=== PATIENT | male | born 1940 | race Caucasian/White ===

== ENCOUNTER → 2017-05-25 | Outpatient (CLI) | payer MEDICARE, BC ==
[~2017-05-25] MED LIST: ALLO100T70 PO; ALPR-434 PO; ALPR-436 PO; ALPR-448 PO; ALPR-459 PO; ALPR-460 PO; ASPI-715 PO; ASTR1POW PO; CA C1TAB85 PO; CHOL20007 PO; COLC0.6C3 PO; CYCL1DRO6 OP; ESC10 PO; ESCI5TAB3 PO; FOLI-68 PO; HYDR-4309 PO; HYDR-6045 RC; HYDR25SU51 RC; HYDR30SU11 RC; MULT1CAP41 PO; MULT1CAP59 PO; Magic Mouthwash PO; ONDA8TAB94 PO; OXYGEN INH; PHEN15CA69 PO; PNEU0.5D3 IM; SIMV-49 PO; THIA100T58 PO; TRAZ-156 PO; TRAZ150T8 PO; TRIA15CR40 TP; UBID10CA11 PO; VENL37.53 PO; VENL75CA4 PO; VITA-365 PO; WITC1MED12 TP
== END ==
LOC: AMB 22:50
PROVIDERS: ATTEND Nurse Practitioner
DX: R07.9 Chest pain, unspecified (principal); M79.602 Pain in left arm; R53.1 Weakness; R00.0 Tachycardia, unspecified; I10 Essential (primary) hypertension; R94.31 Abnormal electrocardiogram [ECG] [EKG]
CPT/HCPCS: A0425; A0427

== ENCOUNTER 2017-11-14 09:53 | Emergency (ER) | payer MEDICARE, OTHER ==
[2017-11-14 09:57] VITALS: BP 156/113
[2017-11-14] MEDS ORDERED: DOXY-179 PO (10:19)
--- NOTE | 2017-11-14 10:23 | ER Report ---
History and Physical Time Seen By MD: 10:14 Hx. of Stated Complaint: tick bites to left hip, back of each leg. pulled one off that was engorged HPI/ROS CHIEF COMPLAINT: 3 tick bites HISTORY OF PRESENT ILLNESS: Patient is a 77-year-old male here with suspected tick bites of the bilateral knees, left waist. He was reportedly at his cabin over the weekend cleaning and noticed that the ticks on him which he removed on Saturday. He does have pruritus of the location with surrounding erythema. He did get his tetanus updated prior to coming today. REVIEW OF SYSTEMS: Respiratory: No cough, no dyspnea. Cardiovascular: No chest pain, no palpitations. Gastrointestinal: No vomiting, no abdominal pain. Musculoskeletal: No back pain. SKIN: + pruritus of the b/l knees, left waist Allergies: Coded Allergies: NSAIDS (Non-Steroidal Anti-Inflamma (Verified Allergy, Mild, 11/14/17) naproxen (Verified Allergy, Mild, 11/14/17) Home Meds Active Scripts Trazodone Hcl (TRAZODONE HCL) 150 Mg Tablet, 50-150 MG PO QHS, #90 TAB 6 Refills TAKE 50 - 150 MG ABOUT AN HOUR BEFORE YOU PLAN TO GO TO SLEEP. Prov:SLOANE PETERSON MD 07/24/17 [Magic Mouthwash] No Conflict Check, 5 ML PO Q4-6H Y for throat pain, #100 ML 0 Refills Swish & swallow every 4-6 hours as needed for throat pain. Prov:SAM TREVIÑO DNP, PRACTICE SUPPORT SPECIALIST-BC 06/18/17 Reported Medications Eufemia Coronado (JAREN) 1 Each Med..pad, 1 EACH TP PRN Y for HEMORRHOIDS 05/28/17 Hydrocortisone (ANUSOL-HC) 30 Gm Cream..g., 1 TU RC BID Y for HEMORRHOIDS 05/28/17 Hydrocortisone Acetate (ANUSOL-HC) 25 Mg Supp.rect, 25 MG RC QHS Y for HEMORRHOIDS, SUPP.RECT 05/28/17 Thiamine Hcl (VITAMIN B-1) 100 Mg Tablet, 100 MG PO QDAY 05/28/17 Folic Acid (FOLIC ACID) 1 Mg Tablet, 1 MG PO QDAY, TAB 05/28/17 Multivitamin (MULTIVITAMINS) 1 Each Capsule, 1 EACH PO QDAY, CAPSULE 12/27/15 Cyclosporine (RESTASIS) 1 Each Droperette, 1 EACH OP DAILY 09/26/13 Hx Smoking: No Smoking Status: Never Smoker Exposure to Second Hand Smoke?: No Hx Substance Use Disorder: No Hx Alcohol Use: Yes Constitutional Vital Sign - Last 24 Hours 11/14/17 09:57 Temp 98.1 Pulse 72 Resp 14 B/P (MAP) 156/113 Pulse Ox 91 O2 Delivery Room Air Physical Exam General Appearance: The patient is alert, has no immediate need for airway protection and no current signs of toxicity. [ ] Extremities have full range of motion and are non tender, + circular rash of the b/l back knees, left waist Skin: + circular rash with erythema of knees/left waist DIFFERENTIAL DIAGNOSIS: After history and physical exam differential diagnosis was considered for tick borne infection, MRSA, Staph infection, dermatitis Medical Decision Making ED Course/Re-evaluation ED Course Patient is a 77-year-old male here with complaints of 3 separate rashes suspect that the tick bites after visiting his cabin over the Weekend. Due to concern for infection, and possible borne illness, patient was given a prescription for doxycycline twice a day for 7 days. Decision to Disposition Date: November 14, 2017 Decision to Disposition Time: 10:20 Depart Departure Latest Vital Signs Vital Signs Date Time Temp Pulse Resp B/P (MAP) Pulse Ox O2 Delivery O2 Flow Rate FiO2 11/14/17 09:57 98.1 72 14 156/113 91 Room Air Impression: Primary Impression: Tick bite Condition: Condition Unchanged Disposition: HOME OR SELF-CARE Referrals: SLOANE PETERSON MD (PCP) New Scripts Doxycycline Hyclate (DOXYCYCLINE HYCLATE) 100 Mg Tablet 100 MG PO BID for 7 Days, #14 CAP Prov: JOSEPH MISTRY DO 11/14/17 Patient Instructions: Doxycycline (By mouth) Additional Instructions: Please take one tablet twice daily for 7 days of doxycycline. Please return promptly if you develop worsening pain, fevers, spreading rash, joint pain. JOSEPH MISTRY DO November 14, 2017 10:22
== END 2017-11-14 10:36 | disposition home or self-care (01) ==
LOC: ER 10:09
DX: S70.262A Insect bite (nonvenomous), left hip, initial encounter (principal); S80.862A Insect bite (nonvenomous), left lower leg, initial encounter; S80.861A Insect bite (nonvenomous), right lower leg, initial encounter; W57.XXXA Bitten or stung by nonvenomous insect and other nonvenomous arthropods, initial encounter
CPT/HCPCS: 99281

== ENCOUNTER 2018-02-10 10:31 | Emergency (ER) | payer MEDICARE ==
[2018-02-10 10:41] VITALS: BP 133/95
--- NOTE | 2018-02-10 10:52 | ER Report ---
History and Physical Time Seen By MD: 10:52 Hx. of Stated Complaint: PT FELL YESTERDAY IN HOME, HAS ABRASIONS TO LEGS AND ARMS FROM FALL AND HIT HIS HEAD. WANTS TO MAKE SURE HE DOESN'T HAVE A CONCUSSION OR ANYTHIG WRONG HE IS SUPPOSE TO HAVE CATARACT SURGERY TOMORROW HPI/ROS CHIEF COMPLAINT: Fall HISTORY OF PRESENT ILLNESS: This is a 77-year-old male who presents to the emergency department for a fall. Patient states that yesterday morning he tripped, fell down hitting his forehead on a carpeted surface, no loss of consciousness over he has had some mild nausea has a mild headache. Patient also has several abrasions to both knees but is able to ambulate. No chest pain or shortness of breath. No fevers or chills. No loss of bowel or bladder. REVIEW OF SYSTEMS: Constitutional: No fever, no chills. Eyes: No discharge. ENT: No sore throat. Cardiovascular: No chest pain, no palpitations. Respiratory: No cough, no shortness of breath. Gastrointestinal: No abdominal pain, no vomiting. Genitourinary: No hematuria. Musculoskeletal: No back pain. Skin: As above. Neurological: As above. Allergies: Coded Allergies: NSAIDS (Non-Steroidal Anti-Inflamma (Verified Allergy, Mild, 02/10/18) naproxen (Verified Allergy, Mild, 02/10/18) Home Meds Active Scripts Pantoprazole Sodium (PANTOPRAZOLE SODIUM) 40 Mg Tablet.dr, 40 MG PO QDAY, #30 TAB.SR 6 Refills Prov:SLOANE PETERSON MD 01/20/18 Fluticasone Prop 50 Mcg Ns (FLONASE 50 MCG NS) 16 Gm [place].susp, 2 SPRAYS NS QDAY, #1 BOT 3 Refills Prov:SLOANE PETERSON MD 01/20/18 Trazodone Hcl (TRAZODONE HCL) 150 Mg Tablet, 50-150 MG PO QHS, #90 TAB 6 Refills TAKE 50 - 150 MG ABOUT AN HOUR BEFORE YOU PLAN TO GO TO SLEEP. Prov:SLOANE PETERSON MD 07/24/17 Reported Medications Eufemia Coronado (THUANCKS) 1 Each Med..pad, 1 EACH TP PRN PRN for HEMORRHOIDS 05/28/17 Folic Acid (FOLIC ACID) 1 Mg Tablet, 1 MG PO QDAY, TAB 05/28/17 Multivitamin (MULTIVITAMINS) 1 Each Capsule, 1 EACH PO QDAY, CAPSULE 12/27/15 Cyclosporine (RESTASIS) 1 Each Droperette, 1 EACH OP DAILY 09/26/13 Past Medical/Surgical History The patient has a past medical and surgical history of neuropathy, PVCs, PACs, intermittent irregular heartbeat, sleep apnea, nephritis, BPH, arthritis, wrist fractures bilaterally, nosebleeds, cataracts, wears glasses, hard of hearing, hearing aides, anxiety, skin cancer removal, now resection, diverticulitis, tonsillectomy. Reviewed Nurses Notes: Yes Hx Smoking: No Smoking Status: Never Smoker Exposure to Second Hand Smoke?: No Hx Substance Use Disorder: No Hx Alcohol Use: Yes Constitutional Vital Sign - Last 24 Hours 02/10/18 10:41 Temp 98.2 Pulse 103 Resp 18 B/P (MAP) 133/95 Pulse Ox 92 Physical Exam General Appearance: The patient is alert, has no immediate need for airway protection and no signs of toxicity. Eyes: Pupils equal and round no pallor or injection. EOMs intact. No nystagmus. ENT, Mouth: Mucous membranes are moist. Respiratory: There are no retractions, lungs are clear to auscultation. Cardiovascular: Regular rate and rhythm, no murmurs, clicks or rubs. Gastrointestinal: Abdomen is soft and non tender, no masses, bowel sounds normal. Neurological: Alert and oriented 4. Moving all extremities. Following all commands. No focal neuro deficits. Cranial enlarged 2 through 12 intact. Skin: Abrasions to bilateral knees, with small amount of serous drainage. No edema, erythema or cellulitic appearance. Musculoskeletal: Neck is supple non tender. Extremities are nontender, nonswollen and have full range of motion. DIFFERENTIAL DIAGNOSIS: After history and physical exam differential diagnosis was considered for headache including but not limited to subarachnoid hemorrhage, migraine headache, tension headache and infectious causes such as meningitis, pharyngitis and sinusitis. Medical Decision Making EKG/Imaging Imaging TECHNIQUE: Contiguous axial images were obtained from the skull base to the vertex without intravenous contrast. Sagittal and coronal reformatted images are also submitted. One of the following dose optimization techniques was utilized in the performance of this exam: Automated exposure control; adjustment of the mA and/or kV according to the patient's size; or use of an iterative reconstruction technique. Specific details can be referenced in the facility's radiology CT exam operational policy. FINDINGS: Brain volume: Moderate generalized cerebral and cerebellar atrophy with associated concordant prominence of ventricular system. Ventricles: Normal. Acute ischemic changes: None. Hemorrhage: No acute intracranial hemorrhage. Masses/edema: None. Hernández-white: Negative. White matter: Normal. Vessels: Calcified plaque of both carotid siphons. Extra-axial: Prominent extra-axial spaces bilaterally at the vertex is partly due to underlying brain atrophy. There is also subdural hygroma on the right measuring 5 mm in greatest thickness. Calvarium/scalp: No acute fracture. Skull base/visualized face: Negative. Visualized sinuses/orbits: Negative. IMPRESSION: 1. No acute fracture, hemorrhage or intracranial mass lesion. No CT evidence of acute infarct. 2. Chronic right subdural hygroma at the vertex measuring 5 mm. No mass effect or midline shift. 3. Moderate generalized atrophy is advanced for age. Report Dictated By: Mercedez Nelson MD at 02/10/2018 11:47 AM Report E-Signed By: Mercedez Nelson MD at 02/10/2018 11:50 AM WSN:[id number] ED Course/Re-evaluation ED Course The patient was admitted to room. A history physical obtained. Differential Diagnoses were considered. The patient did have a fall from standing, hitting his forehead on a carpeted surface yesterday, does have a mild global headache as well as pain to the forehead. No obvious signs of bruising, crepitus or deformities. A CT of the head was negative for any acute findings however there was an incidental finding of a chronic subdural hygroma, I did review this with the patient's he will follow-up with his primary care provider within the next couple of weeks. I did tell the patient that I do not see any reason why he would not be able to have his cataract surgery tomorrow however this is up to the discretion of the deli worker patient is aware of. Patient had no other questions or concerns at this time and was discharged home. Decision to Disposition Date: Feb 10, 2018 Decision to Disposition Time: 12:32 Depart Departure Latest Vital Signs Vital Signs Date Time Temp Pulse Resp B/P (MAP) Pulse Ox O2 Delivery O2 Flow Rate FiO2 02/10/18 10:41 98.2 103 18 133/95 92 Impression: Primary Impression: Nontraumatic subdural hygroma Additional Impressions: Fall from standing Head injury Abrasion of knee, bilateral Condition: Improved Disposition: HOME OR SELF-CARE Referrals: SLOANE PETERSON MD (PCP) 2 Weeks Patient Instructions: Acute Wound Care (ED), Fall Prevention (ED), Fall Prevention for Older Adults (ED) Additional Instructions: I see no indication why you would not be able to proceed with your cataract surgery tomorrow. Incidental finding of chronic subdural hygroma, I would recommend following up with your primary care provider within the next 2 weeks for reevaluation. Drink plenty of water. Get plenty of rest. Return to the emergency room for any other concerns or worsening symptoms. Problem Qualifiers Additional Impressions: Fall from standing Encounter type: initial encounter Qualified Codes: W19.XXXA - Unspecified fall, initial encounter Head injury Encounter type: initial encounter Qualified Codes: S09.90XA - Unspecified injury of head, initial encounter JONNIE SULLIVAN CERTIFIED NURSE PRACTITIONER-BC Feb 10, 2018 10:52
--- NOTE | 2018-02-10 11:53 | RADIOLOGY IMAGING REPORT ---
FACILITY: [facility] - [place] PATIENT NAME: Thai Cruz : 1940 MR: [id number] V: [id number] EXAM DATE: ORDERING PHYSICIAN: JONNIE SULLIVAN TECHNOLOGIST: Location: [facility] - [place] Patient: Thai Cruz : 1940 Visit/Account:[id number] Date of Sevice: 02/10/2018 EXAMINATION: CT head without IV contrast HISTORY: Fall, head injury. COMPARISON: None. TECHNIQUE: Contiguous axial images were obtained from the skull base to the vertex without intraven ous contrast. Sagittal and coronal reformatted images are also submitted. One of the following dose optimization techniques was utilized in the performance of this exam: Autom ated exposure control; adjustment of the mA and/or kV according to the patient's size; or use of an i terative reconstruction technique. Specific details can be referenced in the facility's radiology C T exam operational policy. FINDINGS: Brain volume: Moderate generalized cerebral and cerebellar atrophy with associated concordant promin ence of ventricular system. Ventricles: Normal. Acute ischemic changes: None. Hemorrhage: No acute intracranial hemorrhage. Masses/edema: None. Hernández-white: Negative. White matter: Normal. Vessels: Calcified plaque of both carotid siphons. Extra-axial: Prominent extra-axial spaces bilaterally at the vertex is partly due to underlying brai n atrophy. There is also subdural hygroma on the right measuring 5 mm in greatest thickness. Calvarium/scalp: No acute fracture. Skull base/visualized face: Negative. Visualized sinuses/orbits: Negative. IMPRESSION: 1. No acute fracture, hemorrhage or intracranial mass lesion. No CT evidence of acute infarct. 2. Chronic right subdural hygroma at the vertex measuring 5 mm. No mass effect or midline shift. 3. Moderate generalized atrophy is advanced for age. Report Dictated By: Mercedez Nelson MD at 02/10/2018 11:47 AM Report E-Signed By: Mercedez Nelson MD at 02/10/2018 11:50 AM WSN:[id number]
== END 2018-02-10 12:50 | disposition home or self-care (01) ==
LOC: ER 10:55
DX: G96.0 Cerebrospinal fluid leak (principal); S09.90XA Unspecified injury of head, initial encounter; S80.212A Abrasion, left knee, initial encounter; S80.211A Abrasion, right knee, initial encounter; W01.198A Fall on same level from slipping, tripping and stumbling with subsequent striking against other object, initial encounter
CPT/HCPCS: 70450; 99284

== ENCOUNTER → 2018-02-10 | Outpatient (CLI) | payer MEDICARE ==
[~2018-02-10] MED LIST changes: +DOXY-179 PO; +FLUT16SP19 NS; +METH4TAB66 PO; +PANT40TA65 PO; +THIA100T20 PO; -THIA100T58 PO; -TRAZ-156 PO; +TRAZ50TA34 PO
--- NOTE | 2018-02-10 18:25 | RADIOLOGY IMAGING REPORT ---
FACILITY: [facility] - [place] PATIENT NAME: Thai Cruz : 1940 MR: [id number] V: [id number] EXAM DATE: ORDERING PHYSICIAN: SLOANE PETERSON TECHNOLOGIST: Location: [facility] - [place] Patient: Thai Cruz : 1940 Visit/Account:[id number] Date of Sevice: 02/10/2018 EXAMINATION: Ultrasound of the neck 02/10/2018 9:31 AM HISTORY: dysphagia COMPARISON: None FINDINGS: Imaging of both sides of the neck was done. No pathologically enlarged cervical lymph node s are demonstrated. Benign-appearing level 3 lymph node on the left measures 4 x 4 by 4 mm. Additiona l benign-appearing 6 x 5 4 L level 3 lymph node has a normal echogenic fatty hilus. On the left, norm al-appearing level 2 lymph nodes are demonstrated measuring 12 x 6 x 3 mm and 15 x 15 x 3 mm. These h ave normal echogenic fatty chris. Full detailed thyroid imaging with measurements is not done. Limited visualization of the subtalar sa livary glands on each side is unremarkable with symmetric echogenicity. IMPRESSION: Unremarkable ultrasound of the neck. No pathologic adenopathy demonstrated. Report Dictated By: Marco Sharif MD at 02/10/2018 6:19 PM Report E-Signed By: Marco Sharif MD at 02/10/2018 6:22 PM WSN:[id number]
== END ==
LOC: US 02:32
PROVIDERS: ATTEND Internal Medicine
DX: R13.10 Dysphagia, unspecified (principal)
CPT/HCPCS: 76536

== ENCOUNTER → 2018-03-17 | Outpatient (CLI) | payer MEDICARE | LOC: LAB 09:51 | PROVIDERS: ATTEND Internal Medicine | DX: J02.9 Acute pharyngitis, unspecified (principal); R13.12 Dysphagia, oropharyngeal phase | CPT/HCPCS: 87070 ==

== ENCOUNTER → 2018-04-04 | Outpatient (CLI) | payer MEDICARE ==
[~2018-04-04] MED LIST changes: +AMOX-559 PO; -HYDR-4309 PO; +HYDR-653 PO
== END ==
LOC: LAB 10:17
PROVIDERS: ATTEND Internal Medicine
DX: J02.9 Acute pharyngitis, unspecified (principal)
CPT/HCPCS: 87070

== ENCOUNTER 2018-07-25 16:28 | Inpatient (IN) | payer MEDICARE ==
[~2018-07-25] VITALS: Ht 175.3 cm; Wt 106.1 kg
[2018-07-25] VITALS (16 sets, daily range): BP systolic 59–108; BP diastolic 31–100
--- NOTE | 2018-07-25 16:31 | ER Report ---
History and Physical Time Seen By MD: 16:31 HPI/ROS CHIEF COMPLAINT: Altered mental status, fall HISTORY OF PRESENT ILLNESS: Patient is a 78-year-old male with a history of alcoholism found at the bottom of steps at the patient's residence, confused, warm to the touch. EMS report. Patient reportedly was recently started on Valium for his alcoholism. Events leading up to the patient being found are unclear at this time however she was notably confused, with a rapid heart rate which was irregular and confirmed to be atrial fibrillation with RVR. Patient's blood pressure was stable, initially patient was noted to be hypothermic however he his became febrile though he was cold and diaphoretic throughout course. Patient was moving all extremities spontaneously with no obvious focal deficits aside from confusion, change in mental status. REVIEW OF SYSTEMS: Unable to obtain due to patient's mental status Allergies: Coded Allergies: NSAIDS (Non-Steroidal Anti-Inflamma (Verified Allergy, Mild, 02/10/18) naproxen (Verified Allergy, Mild, 02/10/18) Home Meds Active Scripts Amoxicillin/Pot Clav 875-125 Mg Tab (AUGMENTIN 875-125 TABLET) 1 Each Tablet, 1 TAB PO Q12H for 10 Days, #20 TAB Prov:NAIN YARBROUGH JR, MD 05/14/18 Neomycin/Polymyxin B Sulf/Hc (Cortisporin [DSC] EAR SOLN) 10 Ml Solution, 5 DROP RIGHT EAR BID for 7 Days, #1 BOT Prov:NAIN YARBROUGH JR, MD 05/07/18 Simvastatin (SIMVASTATIN) 20 Mg Tablet, 20 MG PO HS, #90 TAB 1 Refill Prov:SLOANE PETERSON MD 03/26/18 Amoxicillin/Pot Clav 875-125 Mg Tab (AUGMENTIN 875-125 TABLET) 1 Each Tablet, 1 TAB PO Q12H, #20 TAB Prov:SLOANE PETERSON MD 03/20/18 Pantoprazole Sodium (PANTOPRAZOLE SODIUM) 40 Mg Tablet.dr, 40 MG PO QDAY, #30 TAB.SR 6 Refills Prov:SLOANE PETERSON MD 01/20/18 Fluticasone Prop 50 Mcg Ns (FLONASE 50 MCG NS) 16 Gm [place].susp, 2 SPRAYS NS QDAY, #1 BOT 3 Refills Prov:SLOANE PETERSON MD 01/20/18 Trazodone Hcl (TRAZODONE HCL) 150 Mg Tablet, 50-150 MG PO QHS, #90 TAB 6 Refills TAKE 50 - 150 MG ABOUT AN HOUR BEFORE YOU PLAN TO GO TO SLEEP. Prov:SLOANE PETERSON MD 07/24/17 Reported Medications Eufemia Coronado (TUCKS) 1 Each Med..pad, 1 EACH TP PRN PRN for HEMORRHOIDS 05/28/17 Folic Acid (FOLIC ACID) 1 Mg Tablet, 1 MG PO QDAY, TAB 05/28/17 Multivitamin (MULTIVITAMINS) 1 Each Capsule, 1 EACH PO QDAY, CAPSULE 12/27/15 Cyclosporine (RESTASIS) 1 Each Droperette, 1 EACH OP DAILY 09/26/13 Hx Smoking: No Smoking Status: Never Smoker Exposure to Second Hand Smoke?: No Hx Substance Use Disorder: No Hx Alcohol Use: Yes Constitutional Vital Sign - Last 24 Hours 07/25/18 07/25/18 07/25/18 07/25/18 16:28 16:29 16:29 16:32 Pulse ??? 181 Resp 16 B/P (MAP) 153/137 (142) 80/63 80/63 (69) Pulse Ox 92 O2 Delivery Nasal Cannula 07/25/18 07/25/18 07/25/18 07/25/18 16:43 16:49 16:58 17:08 Pulse 159 200 Resp 58 27 B/P (MAP) 115/79 (91) 84/76 (79) Pulse Ox 85 07/25/18 07/25/18 07/25/18 07/25/18 17:13 17:20 17:28 17:30 Pulse 138 203 Resp 34 18 B/P (MAP) 94/71 (79) 87/51 (63) 83/66 (72) Pulse Ox 97 81 07/25/18 07/25/18 07/25/18 07/25/18 17:32 17:36 17:40 17:45 Pulse 154 Resp 30 B/P (MAP) 105/24 (51) 87/63 (71) 87/70 (76) 07/25/18 07/25/18 07/25/18 07/25/18 17:50 17:58 18:00 18:10 Pulse 125 Resp 23 B/P (MAP) 104/65 (78) 96/64 (75) 86/70 (75) Pulse Ox 95 O2 Flow Rate 3.0 Physical Exam General Appearance: Confused, moving all extremities spontaneously Eyes: Pupils equal and round no pallor or injection. ENT, Mouth: Mucous membranes are dry Respiratory: There are no retractions, lungs are clear to auscultation. Cardiovascular: Rapid irregular heart rate Gastrointestinal: Abdomen is soft and non tender, no masses, bowel sounds normal.+ Hernia present in the left anterior abdominal wall, no rebound or guarding Neurological: Moving all extremities spontaneously, confused, incoherent speech Skin: Warm and dry, no rashes. Musculoskeletal: Neck is supple non tender. Extremities are nontender, nonswollen and have full range of motion. DIFFERENTIAL DIAGNOSIS: After history and physical exam differential diagnosis was considered for altered mental status including but not limited to hypoglycemia, infectious process, electrolyte abnormality, head injury and intoxicants. Sepsis Medical Decision Making Data Points Result Diagram: 07/28/18 0536 07/28/18 0536 Laboratory Hematology Test 07/25/18 16:19 07/25/18 16:39 07/25/18 17:44 Activated Partial Thromboplast Time 31 seconds (23-35) Ammonia 32 UMOL/L (9-33) Total Creatine Kinase 704 U/L (55-170) Urine Color Dior Urine Clarity Cloudy Urine pH 5.0 pH (4.8-9.5) Urine Specific [place] 1.026 Urine Protein 30 mg/dL (NEGATIVE) Urine Glucose (UA) 50 mg/dL (NEGATIVE) Urine Ketones Negative mg/dL (NEGATIVE) Urine Blood Small (NEGATIVE) Urine Nitrite Negative (NEGATIVE) Urine Bilirubin Moderate (NEGATIVE) Urine Urobilinogen 4.0 mg/dL (0.2-1.9) Urine Leukocyte Esterase Negative (NEGATIVE) Urine RBC 1 /HPF (0-2/HPF) Urine WBC 39 /HPF (0-5/HPF) Urine Squamous Epithelial Cells Few /LPF (NONE-FEW) Urine Calcium Oxalate Crystals Few /HPF (NONE) Urine Bacteria Negative /HPF (NONE-FEW) Urine Hyaline Casts Many /LPF (NONE-FEW) Urine Mucus Few /HPF (NONE-FEW) Urine Opiates Screen Negative Urine Barbiturates Screen Negative Ur Tricyclic Antidepressants Screen Negative Urine Phencyclidine Screen Negative Urine Amphetamines Screen Positive Urine Benzodiazepines Screen Positive Urine Cocaine Screen Negative Urine Cannabinoids Screen Negative Influenza Virus Type A (PCR) Negative (NEGATIVE) Influenza Virus Type B (PCR) Negative (NEGATIVE) Chemistry Test 07/25/18 16:19 07/25/18 16:39 07/25/18 17:44 Activated Partial Thromboplast Time 31 seconds (23-35) Ammonia 32 UMOL/L (9-33) Total Creatine Kinase 704 U/L (55-170) Urine Color Dior Urine Clarity Cloudy Urine pH 5.0 pH (4.8-9.5) Urine Specific [place] 1.026 Urine Protein 30 mg/dL (NEGATIVE) Urine Glucose (UA) 50 mg/dL (NEGATIVE) Urine Ketones Negative mg/dL (NEGATIVE) Urine Blood Small (NEGATIVE) Urine Nitrite Negative (NEGATIVE) Urine Bilirubin Moderate (NEGATIVE) Urine Urobilinogen 4.0 mg/dL (0.2-1.9) Urine Leukocyte Esterase Negative (NEGATIVE) Urine RBC 1 /HPF (0-2/HPF) Urine WBC 39 /HPF (0-5/HPF) Urine Squamous Epithelial Cells Few /LPF (NONE-FEW) Urine Calcium Oxalate Crystals Few /HPF (NONE) Urine Bacteria Negative /HPF (NONE-FEW) Urine Hyaline Casts Many /LPF (NONE-FEW) Urine Mucus Few /HPF (NONE-FEW) Urine Opiates Screen Negative Urine Barbiturates Screen Negative Ur Tricyclic Antidepressants Screen Negative Urine Phencyclidine Screen Negative Urine Amphetamines Screen Positive Urine Benzodiazepines Screen Positive Urine Cocaine Screen Negative Urine Cannabinoids Screen Negative Influenza Virus Type A (PCR) Negative (NEGATIVE) Influenza Virus Type B (PCR) Negative (NEGATIVE) Coagulation Test 07/25/18 16:19 Activated Partial Thromboplast Time 31 seconds Toxicology Test 07/25/18 16:39 Urine Opiates Screen Negative Urine Barbiturates Screen Negative Ur Tricyclic Antidepressants Screen Negative Urine Phencyclidine Screen Negative Urine Amphetamines Screen Positive Urine Benzodiazepines Screen Positive Urine Cocaine Screen Negative Urine Cannabinoids Screen Negative Urinalysis Test 07/25/18 16:39 Urine Color Dior Urine Clarity Cloudy Urine pH 5.0 pH (4.8-9.5) Urine Specific [place] 1.026 Urine Protein 30 mg/dL (NEGATIVE) Urine Glucose (UA) 50 mg/dL (NEGATIVE) Urine Ketones Negative mg/dL (NEGATIVE) Urine Blood Small (NEGATIVE) Urine Nitrite Negative (NEGATIVE) Urine Bilirubin Moderate (NEGATIVE) Urine Urobilinogen 4.0 mg/dL (0.2-1.9) Urine Leukocyte Esterase Negative (NEGATIVE) Urine RBC 1 /HPF (0-2/HPF) Urine WBC 39 /HPF (0-5/HPF) Urine Squamous Epithelial Cells Few /LPF (NONE-FEW) Urine Calcium Oxalate Crystals Few /HPF (NONE) Urine Bacteria Negative /HPF (NONE-FEW) Urine Hyaline Casts Many /LPF (NONE-FEW) Urine Mucus Few /HPF (NONE-FEW) Microbiology Microbiology Date/Time Source Procedure Growth Status 07/25/18 17:00 Blood Peripheral Draw Blood Culture - Preliminary NO GROWTH AFTER 3 DAYS, REINCUBATED Resulted 07/25/18 17:00 Blood Peripheral Draw Blood Culture - Preliminary NO GROWTH AFTER 3 DAYS, REINCUBATED Resulted 07/25/18 16:39 Cath Urine Urine Culture - Final No growth Complete EKG/Imaging Imaging Please see official imaging reports ED Course/Re-evaluation ED Course Patient is a 78-year-old male found at the bottom of a flight of steps, altered, diaphoretic, with a irregular rapid heart rate initially hypothermic and found to be febrile shortly after arrival. Events leading up to patient being found are unclear however patient was noted to have a history of alcoholism recently started on Valium. Patient was noted to have a lactate of 11, mild leukocytosis of 12, creatinine is 3 with markedly aberrant liver enzymes and elevated bilirubin level. Patient labs were immediately collected including blood cultures, sepsis protocols were initiated including fluid resuscitation, empiric in a metacarpal administration. CT imaging of the head, C-spine, chest abdomen pelvis without contrast were completed. I discussed the patient with Dr. Quick who accepted the patient to the ICU. Patient was administered diltiazem and started on a diltiazem drip for control of A. fib RVR. Blood pressure remained stable throughout course. Decision to Disposition Date: Jul 25, 2018 Decision to Disposition Time: 17:59 Depart Departure Latest Vital Signs Vital Signs Date Time Temp Pulse Resp B/P (MAP) Pulse Ox O2 Delivery O2 Flow Rate FiO2 07/25/18 18:10 86/70 (75) 07/25/18 18:00 125 23 95 07/25/18 17:58 3.0 07/25/18 16:29 Nasal Cannula Impression: Primary Impression: Alcohol abuse Additional Impressions: Acute renal failure Altered mental status Condition: Condition Unchanged Disposition: Admitted from ER Referrals: SLOANE PETERSON MD (PCP) Problem Qualifiers JOSEPH MISTRY DO Jul 25, 2018 16:31
[2018-07-25] MEDS ORDERED: CEFEPIME HCL 2 GM VIAL IVP ONE (16:35)
[2018-07-25] MEDS ORDERED: VANCOMYCIN 1 GM ADDVIAL 1 GM in NS(*) 0.9% 250 ML ADDVAN BAG 250 ML IVPB ONE (16:35)
[2018-07-25] MEDS ORDERED: NS(*) 0.9% 1000 ML BAG 1,000 ML IV ONE (16:35)
[2018-07-25 16:58] LABS: PLATELET COUNT, AUTOMATED 268 K/uL (150-450)
[2018-07-25 17:03] LABS: INR 1.07
[2018-07-25] MEDS ORDERED: DILTIAZEM 5 MG/ML 5ML IVPUSH IVP ONE (17:10)
[2018-07-25] MEDS ORDERED: VANCOMYCIN(*) 1 GM VIAL 2.5 GM in NS(*) 0.9% 500 ML BAG 500 ML IVPB ONE (17:15)
[2018-07-25] MEDS ORDERED: DILTIAZEM HCL 125 MG/25 ML SDV 125 MG in NS(*) 0.9% 100 ML BAG 100 ML IV ONE (17:35)
[2018-07-25] MEDS ORDERED: EMS NS 0.9%(*) 1000 ML BAG 1,000 ML IV ONE ×2 (17:40→18:00)
--- NOTE | 2018-07-25 18:23 | RADIOLOGY IMAGING REPORT ---
FACILITY: [facility] PATIENT NAME: Thai Cruz : 1940 MR: [id number] V: [id number] EXAM DATE: ORDERING PHYSICIAN: JOSEPH MISTRY TECHNOLOGIST: Location: [facility] Patient: Thai Cruz : 1940 Visit/Account:[id number] Date of Sevice: 07/25/2018 EXAMINATION: CT head without IV contrast HISTORY: AMS. TECHNIQUE: Axial CT images of the head were obtained from the vertex to the skull base without IV c ontrast, with coronal and sagittal 2D reconstructed images. One of the following dose optimization techniques was utilized in the performance of this exam: Autom ated exposure control; adjustment of the mA and/or kV according to the patient's size; or use of an i terative reconstruction technique. Specific details can be referenced in the facility's radiology C T exam operational policy. COMPARISON: 02/10/2018. FINDINGS: There is stable moderate generalized parenchymal atrophy, with mild patchy low attenuation in the tommy p white matter compatible with chronic small vessel ischemic change. Stable small focus of chronic e ncephalomalacia in the anterior right temporal lobe. Intracranial vascular calcifications. No CT evidence of intracranial hemorrhage, mass lesion, or acute infarct. No midline shift or extra-a xial fluid collections. Hernández-white differentiation is maintained. The calvarium is intact. The partially visualized paranasal sinuses and mastoid air cells are unopaci fied. IMPRESSION: 1. No CT evidence of acute intracranial pathology. 2. Moderate parenchymal atrophy appear stable with chronic small vessel ischemic change. Report Dictated By: Jas Wallace MD at 07/25/2018 6:14 PM Report E-Signed By: Jas Wallace MD at 07/25/2018 6:19 PM WSN:[email or web address]
--- NOTE | 2018-07-25 18:25 | RADIOLOGY IMAGING REPORT ---
FACILITY: [facility] - [place] PATIENT NAME: Thai Cruz : 1940 MR: [id number] V: [id number] EXAM DATE: ORDERING PHYSICIAN: JOSEPH MISTRY TECHNOLOGIST: [place] [facility] [place] : 1940 Visit/Account:[id number] Date of Sevice: 07/25/2018 EXAMINATION: CT cervical spine without IV contrast HISTORY: AMS. TECHNIQUE: Thin axial CT images of the cervical spine were obtained without IV contrast, with sagit elzbieta and coronal 2D reconstructed images. One of the following dose optimization techniques was utilized in the performance of this exam: Autom ated exposure control; adjustment of the mA and/or kV according to the patient's size; or use of an i terative reconstruction technique. Specific details can be referenced in the facility's radiology C T exam operational policy. COMPARISON: None. FINDINGS: The cervical spine is negative for acute fracture or subluxation. Normal alignment. Vertebral body height is maintained. Chronic multilevel degenerative changes in cervical spine. There is moderate disc space narrowing at the C4-C5 through C6-C7 interspaces with endplate osteophyte formation. Mild multilevel facet arthr opathy bilaterally. The dens is intact. The C1 ring is intact, with normal alignment at the craniocervical junction. IMPRESSION: 1. No acute osseous findings along the cervical spine. Normal alignment. 2. Chronic multilevel degenerative changes in the cervical spine. Report Dictated By: Jas Wallace MD at 07/25/2018 6:19 PM Report E-Signed By: Jas Wallace MD at 07/25/2018 6:21 PM WSN:[email or web address]
[2018-07-25] MEDS ORDERED: NS(*) 0.9% 1000 ML BAG 1,000 ML IV PRN (18:35)
--- NOTE | 2018-07-25 18:35 | RADIOLOGY IMAGING REPORT ---
FACILITY: [facility] - [place] PATIENT NAME: Thai Cruz : 1940 MR: [id number] V: [id number] EXAM DATE: ORDERING PHYSICIAN: JOSEPH MISTRY TECHNOLOGIST: Location: [facility] - [place] Patient: Thai Cruz : 1940 Visit/Account:[id number] Date of Sevice: 07/25/2018 EXAMINATION: CT chest, abdomen, and pelvis without IV contrast HISTORY: Trauma. AMS. TECHNIQUE: Axial CT images of the chest, abdomen, and pelvis were obtained without IV contrast, wit h coronal and sagittal 2D reconstructed images. One of the following dose optimization techniques was utilized in the performance of this exam: Autom ated exposure control; adjustment of the mA and/or kV according to the patient's size; or use of an i terative reconstruction technique. Specific details can be referenced in the facility's radiology C T exam operational policy. COMPARISON: CT abdomen/pelvis without contrast 09/30/2015. FINDINGS: Evaluation of the solid and viscus parenchymal organs is limited without the benefit of IV contrast. Image quality is also partially degraded by respiratory motion artifact. Chest: Lungs and pleura: There is some mild patchy airspace disease in the left lower lobe, partially obscu red by motion artifact, suspicious for an infectious or inflammatory pneumonitis. Additional mild at electasis or infiltrate in the right lung base. The upper lungs are clear. The central airways are patent. No pleural effusion or pneumothorax. Mediastinum and chris: Negative. Heart, aorta, and great vessels: Normal caliber thoracic aorta. Normal heart size. No pericardial effusion. Chest lymph node assessment: Negative. Bones: No acute osseous findings in the chest. There are old left-sided rib fractures. No definite acute rib fracture. Chronic multilevel degenerative changes along the thoracic spine. Chest wall: Negative. Lower neck: Negative. Abdomen/pelvis: Liver: Marked hepatic steatosis with generalized hepatomegaly. Gallbladder and bile ducts: Cholelithiasis. Spleen: Negative. Pancreas: Negative. Adrenal glands: Negative. Kidneys: Small right renal cysts appear grossly stable, measuring up to 2.1 cm.. Kidneys are otherw ise unremarkable. No retroperitoneal fluid or hemorrhage. Bowel and peritoneum: The small bowel and colon are normal in caliber. Extensive colonic diverticul osis. No localized bowel wall thickening. Normal appendix. No free fluid or free intraperitoneal a ir. Pelvic structures: The urinary bladder is decompressed with a Rainey catheter in place. Lymph node assessment: Negative. Vessels: Mild vascular calcifications. Normal caliber abdominal aorta. Musculoskeletal: No evidence of acute fracture in the lumbar spine or bony pelvis. Chronic multile kristy degenerative changes along the lumbar spine. Body wall: Small fat-containing umbilical hernia. Small fat-containing left inguinal hernia. IMPRESSION: 1. No acute traumatic findings in the chest, abdomen, or pelvis. 2. There is some mild patchy airspace disease in the lower left lung which may be compatible with an infectious or inflammatory pneumonitis. Minimal right basilar atelectasis or infiltrate. 3. No acute intra-abdominal findings. 4. Hepatic steatosis with generalized hepatomegaly. 5. Cholelithiasis. 6. Colonic diverticulosis. Report Dictated By: Jas Wallace MD at 07/25/2018 6:21 PM Report E-Signed By: Jas Wallace MD at 07/25/2018 6:31 PM WSN:[email or web address]
--- NOTE | 2018-07-25 18:36 | RADIOLOGY IMAGING REPORT ---
FACILITY: [facility] - [place] PATIENT NAME: Thai Cruz : 1940 MR: [id number] V: [id number] EXAM DATE: ORDERING PHYSICIAN: JOSEPH MISTRY TECHNOLOGIST: Location: [facility] - [place] Patient: Thai Cruz : 1940 Visit/Account:[id number] Date of Sevice: 07/25/2018 EXAMINATION: Portable AP Chest HISTORY: AMS, sepsis COMPARISON: 05/26/2017. FINDINGS: There is mild patchy airspace disease in the lower left lung, suspicious for pneumonitis. Right lung is grossly clear. No pleural effusion or pneumothorax. Normal cardiomediastinal silhouette. No acute osseous findings. Old left rib fractures. IMPRESSION: Left lower lobe infiltrate, suspicious for pneumonia. Report Dictated By: Jas Wallace MD at 07/25/2018 6:31 PM Report E-Signed By: Jas Wallace MD at 07/25/2018 6:32 PM WSN:[email or web address]
[2018-07-25] MEDS ORDERED: DIAZEPAM 10 MG TAB PO PRN (19:25)
[2018-07-25] MEDS: NS(*) 0.9% 1000 ML BAG 1,000 ML IV PRN ×2 (19:30→22:39)
--- NOTE | 2018-07-25 19:48 | History & Physical ---
History of Present Illness Chief Complaint Found down History of Present Illness This patient was brought to the emergency room after being found lying at the bottom of a set of stairs. The events leading up to this are not known and it is also unknown how long he was down for. He is confused, but not complaining of any pain. History Problems: (1) Alcohol abuse Status: Chronic (2) Major depressive disorder, recurrent, unspecified (3) Alcohol withdrawal (4) Chronic kidney disease, stage II (mild) Onset Date: 12/21/2014 Status: Chronic (5) Gouty arthropathy Status: Chronic Home Meds Active Scripts Amoxicillin/Pot Clav 875-125 Mg Tab (AUGMENTIN 875-125 TABLET) 1 Each Tablet, 1 TAB PO Q12H for 10 Days, #20 TAB Prov:NAIN YARBROUGH JR, MD 05/14/18 Neomycin/Polymyxin B Sulf/Hc (Cortisporin [DSC] EAR SOLN) 10 Ml Solution, 5 DROP RIGHT EAR BID for 7 Days, #1 BOT Prov:NAIN YARBROUGH JR, MD 05/07/18 Simvastatin (SIMVASTATIN) 20 Mg Tablet, 20 MG PO HS, #90 TAB 1 Refill Prov:SLOANE PETERSON MD 03/26/18 Amoxicillin/Pot Clav 875-125 Mg Tab (AUGMENTIN 875-125 TABLET) 1 Each Tablet, 1 TAB PO Q12H, #20 TAB Prov:SLOANE PETERSON MD 03/20/18 Pantoprazole Sodium (PANTOPRAZOLE SODIUM) 40 Mg Tablet.dr, 40 MG PO QDAY, #30 TAB.SR 6 Refills Prov:SLOANE PETERSON MD 01/20/18 Fluticasone Prop 50 Mcg Ns (FLONASE 50 MCG NS) 16 Gm [place].susp, 2 SPRAYS NS QDAY, #1 BOT 3 Refills Prov:SLOANE PETERSON MD 01/20/18 Trazodone Hcl (TRAZODONE HCL) 150 Mg Tablet, 50-150 MG PO QHS, #90 TAB 6 Refills TAKE 50 - 150 MG ABOUT AN HOUR BEFORE YOU PLAN TO GO TO SLEEP. Prov:SLOANE PETERSON MD 07/24/17 Reported Medications Eufemia Coronado (JAREN) 1 Each Med..pad, 1 EACH TP PRN PRN for HEMORRHOIDS 12/12/17 Folic Acid (FOLIC ACID) 1 Mg Tablet, 1 MG PO QDAY, TAB 05/28/17 Multivitamin (MULTIVITAMINS) 1 Each Capsule, 1 EACH PO QDAY, CAPSULE 12/27/15 Cyclosporine (RESTASIS) 1 Each [place]pe[place], 1 EACH OP DAILY 09/26/13 Allergies: Coded Allergies: NSAIDS (Non-Steroidal Anti-Inflamma (Verified Allergy, Mild, 02/10/18) naproxen (Verified Allergy, Mild, 02/10/18) Patient History: FH: [place] (myocardial infarction) FATHER, , Age:84 MOTHER, , Age:87 FH: alcohol abuse FATHER, , Age:84 FH: hypertension MOTHER, , Age:87 Hx Smoking: No Smoking Status: Never Smoker Exposure to Second Hand Smoke?: No Caffeine Intake: Soda Hx Alcohol Use: Yes Hx Substance Use Disorder: No Social Drug Use: Never Review of Systems All Systems Reviewed/Normal: Yes, Except as Noted Neurological: Confusion Exam Vital Signs Vital Signs Date Time Temp Pulse Resp B/P (MAP) Pulse Ox O2 Delivery O2 Flow Rate FiO2 07/25/18 19:01 97.8 135 12 95/76 (82) 92 Nasal Cannula 3.0 Neuro: No Gross deficits Eyes: PERRLA Cardiovascular: Other (Irregular rhythm.) Respiratory: Clear to Auscultation GI: Other (Distended with no tenderness.) Extremities: No Edema Integumentary: Jaundice; No Cyanosis Medical Decision Making Data Points Result Diagram: 07/25/18 1619 07/25/18 1619 Assessment and Plan Problems: (1) Altered mental status Assessment & Plan: He was found down at home. The events leading up to this and how long he was down are unknown. A CT scan of the head was unremarkable. He does not have any obvious injury and is not complaining of pain. He remains confused to place and time on arrival to the ICU. A toxicology screen and blood alcohol level are pending. (2) Sepsis Assessment & Plan: He does not have any localizing symptoms, but was noted to be febrile in the field. He also has an elevated lactate level. He has been started on fluid resuscitation and a repeat lactate level is pending. (3) Bacterial pneumonia Assessment & Plan: His chest x-ray and CT scan indicate a left lower lobe infiltrate. He also was found to have an elevated WBC. We have started him on empiric treatment with cefepime and doxycycline. A repeat x-ray is ordered for the morning. (4) Atrial fibrillation with RVR Assessment & Plan: He was in atrial fibrillation with a rapid rate on arrival. He has also been hypotensive. He was started on diltiazem in the emergency department, but this has now been stopped secondary to hypotension. A troponin and EKG are pending. (5) Acute renal failure Assessment & Plan: He did have an elevated creatinine at admission. He is on IV fluids as above. A repeat chemistry is ordered for the morning. (6) Alcoholism Assessment & Plan: He does have a history of withdrawal. He has been placed on CIWA protocol and thiamine. (7) Cirrhosis, alcoholic Assessment & Plan: His liver function has worsened significantly since last ch ecked (07/2017). A hepatitis panel is pending. Copies to: SLOANE PETERSON MD ; Venous Thromboembolism Antithrombotics Is Pt On Any Antithrombotics?: No Exam Sepsis Risk: No Definite Risk HECTOR RODRIGUEZ DO Jul 25, 2018 19:48
--- NOTE | 2018-07-25 20:37 | EKG ---
FACILITY: [facility] PATIENT NAME: HECTOR VERAS : [id number] MR: [id number] V: [id number] EXAM DATE: ORDERING PHYSICIAN: HECTOR RODRIGUEZ TECHNOLOGIST: MARIN Test Reason : AFIB Blood Pressure : / mmHG Vent. Rate : 135 BPM Atrial Rate : 081 BPM P-R Int : 000 ms QRS Dur : 082 ms QT Int : 288 ms P-R-T Axes : 000 -64 075 degrees QTc Int : 432 ms Atrial fibrillation with rapid ventricular response Left axis deviation Septal infarct (cited on or before 25-MAY-2017) Abnormal ECG When compared with ECG of 25-JUL-2018 16:39, ST no longer depressed in Lateral leads Confirmed by HECTOR RODRIGUEZ ([id number]) on 07/25/2018 10:55:35 PM Referred By: Confirmed By:HECTOR RODRIGUEZ
--- NOTE | 2018-07-25 20:38 | EKG ---
FACILITY: [facility] PATIENT NAME: HECTOR VERAS : [id number] MR: [id number] V: [id number] EXAM DATE: ORDERING PHYSICIAN: JOSEPH MISTRY TECHNOLOGIST: Test Reason : a fib Blood Pressure : / mmHG Vent. Rate : 176 BPM Atrial Rate : 147 BPM P-R Int : 000 ms QRS Dur : 088 ms QT Int : 278 ms P-R-T Axes : 000 -64 104 degrees QTc Int : 475 ms Atrial fibrillation with premature ventricular or aberrantly conducted complexes Left axis deviation Septal infarct (cited on or before 25-MAY-2017) Abnormal ECG When compared with ECG of 25-MAY-2017 17:20, Atrial fibrillation has replaced Sinus rhythm T wave amplitude has decreased in Inferior leads Confirmed by EHCTOR RODRIGUEZ ([id number]) on 07/25/2018 10:55:27 PM Referred By: Confirmed By:HECTOR RODRIGUEZ
[2018-07-25] MEDS: DOXYCYCLINE HYCL 100 MG VIAL 100 MG in NS(*) 0.9% 250 ML BAG 250 ML IV SCH (21:45)
[2018-07-26] VITALS (95 sets, daily range): BP systolic 61–127; BP diastolic 29–104
[2018-07-26] MEDS: DIAZEPAM 10 MG TAB PO PRN ×3 (00:53→05:44)
[2018-07-26] MEDS: NS(*) 0.9% 1000 ML BAG 1,000 ML IV PRN ×3 (00:58→18:20)
[2018-07-26] MEDS: CEFEPIME HCL 2 GM VIAL 2 GM in NS(*) 0.9% 100 ML BAG 100 ML IVPB SCH ×2 (04:49→17:10)
[2018-07-26] MEDS ORDERED: DILTIAZEM HCL 125 MG/25 ML SDV 125 MG in NS(*) 0.9% 100 ML BAG 100 ML IV ONE (05:00)
[2018-07-26 05:22] LABS: PLATELET COUNT, AUTOMATED 134 K/uL (150-450)
--- NOTE | 2018-07-26 05:36 | RADIOLOGY IMAGING REPORT ---
[facility] PATIENT NAME: Hector Cruz : 1940 MR: [id number] V: [id number] EXAM DATE: ORDERING PHYSICIAN: HECTOR RODRIGUEZ TECHNOLOGIST: Location: [facility] [place] Patient: Hector Cruz : 1940 Visit/Account:[id number] Date of Sevice: 07/26/2018 AP CHEST 07/26/2018 6:00 AM. INDICATION: Pneumonia COMPARISON: Yesterday. FINDINGS: Given differences in positioned in technique, bilateral patchy opacities are likely not significantly changed and remain greatest at the left base. No definite pleural effusion or pneumothorax. Heart size is unchanged. IMPRESSION: Likely not significantly changed. Report Dictated By: Noel Mercedes MD at 07/26/2018 5:30 AM Report E-Signed By: Noel Mercedes MD at 07/26/2018 5:32 AM WSN:[id number]
[2018-07-26] MEDS: LORazepam 2 MG/ML VIAL IVP PRN ×5 (07:50→14:34)
--- NOTE | 2018-07-26 08:05 | Hospitalist Progress Note ---
Subjective Progress Notes Subjective Agitated. Appears to be hallucinating. Physical Exam Vital Signs Date Time Temp Pulse Resp B/P (MAP) Pulse Ox O2 Delivery O2 Flow Rate FiO2 07/26/18 07:30 155 21 105/66 (79) 89 Nasal Cannula 3.0 07/26/18 06:15 97.8 Intake and Output 07/26/18 07:00 Intake Total 5620.6 ml Output Total 460 ml Balance 5160.6 ml Intake Oral 300 ml IV Total 5320.6 ml Output Urine Total 460 ml # Bowel Movements 1 General Appearance: Alert, Awake, Other (Tremulous/He is oriented only to person) Neuro: Other (moves all four extremities) Cardiovascular: Other (Tachycardic irregular) Respiratory: Other (Diffuse rhonchi with rales at both bases) GI: Soft and Non-Tender, Other (BS present) Extremities: Warm, Perfused Integumentary: Other (some callous formation over right toes/significant hammer toes/mild erythema over several toes on right, but no open areas or drainage) Psych: Other (oriented only to person) Result Diagram: 07/26/1845707/26/18457 Assessment and Plan Problems: (1) Altered mental status Status: Acute Assessment & Plan: He was found down at home. The events leading up to this and how long he was down are unknown. CT scan of the head was unremarkable. He does not have any obvious injury and is not in apparent pain. He is only oriented to person and remains confused to place and time. Toxicology screen is positive for amphetamines and benzodiazepines and blood alcohol was negative. It does appear he has pneumonia as well. I suspect he probably has substance withdrawal (alcohol/benzodiazepines) and acute infection. Will continue CIWA with Ativan coverage and antibiotics/IV fluids/supportive care. (2) Sepsis Status: Acute Assessment & Plan: Probable pneumonia as the etiology. He was noted to be febrile in the field. He also had an elevated lactate level. He has been started on IV antibiotics and IV fluid resuscitation. Repeat lactate levels are improved (2.7 this AM). Cultures pending. (3) Bacterial pneumonia Assessment & Plan: His chest x-ray and CT scan indicate a left lower lobe infiltrate. He also was found to have an elevated WBC. We have started him on empiric treatment with cefepime and doxycycline. Repeat chest x-ray shows slightly increased LLL infiltrate and possible slight RLL infiltrate as well. (4) Atrial fibrillation with RVR Assessment & Plan: He was in atrial fibrillation with a rapid rate on arrival. He has also been hypotensive. He was started on IV diltiazem in the emergency department, but this has now been stopped secondary to hypotension. BP and HR have improved with IV fluids. A troponin was slightly elevated above normal, but not into positive range. Will monitor closely. (5) Acute renal failure Status: Acute Assessment & Plan: Most likely secondary to dehydration and acute infection. He did have an elevated creatinine at admission (3.2). He is on IV fluids as above. Repeat chemistry shows improvement in creatinine to 2.1 this AM. (6) Alcoholism Status: Chronic Assessment & Plan: He does have a history of withdrawal. He has been placed on CIWA protocol and IV thiamine. Watch closely and give IV Ativan as needed. (7) Cirrhosis, alcoholic Assessment & Plan: His liver function has worsened significantly since last checked (07/2017). CT scan shows hepatomegaly and marked steatosis. Hepatitis panel is pending. Exam Sepsis Risk: No Definite Risk ALAN JHA MD Jul 26, 2018 08:05
[2018-07-26] MEDS: THIAMINE HCL 200 MG/2 ML INJ IVP SCH (08:48)
[2018-07-26] MEDS ORDERED: FOLIC ACID 1 MG TAB PO SCH (09:00)
[2018-07-26] MEDS ORDERED: ENOXAPARIN 30 MG/0.3 ML SYR SC SCH (09:00)
[2018-07-26] MEDS: DOXYCYCLINE HYCL 100 MG VIAL 100 MG in NS(*) 0.9% 250 ML BAG 250 ML IV SCH ×2 (09:19→20:18)
[2018-07-26] MEDS ORDERED: KCL (*) 20 MEQ/100 ML PREMIX 100 ML IV ONE (11:40)
--- NOTE | 2018-07-26 11:53 | Medical Nutrition Therapy ---
Nutrition Anthropometrics Height (Inches): 69.00 Height (Calculated Centimeters: 175.534857 Weight (Pounds): 215 Weight (Calculated Kilograms): 97.522 BMI: 31.7 Adams Nutrition Score: Adequate Adams Nutrition Risk Score: 13 Dietary Referral Nutrition Risk Factors: Nutrition Risk Comment: Physical Findings Physical Appearance: Obese BMI 30-39 Skin Appearance Skin Appearance: Edema Edema Location Modifier: Edema Location: Type of Edema: Degree of Edema: Gastrointestinal Symptoms GI Symtoms: Tube Present: Bowel Sounds: Recent Bowel Pattern: Stool Characteristics: Nutritional Diagnosis Nutritional Risk Acuity 1: Acute/ES Renal Nutritional Risk Acuity 2: Sepsis Past Medical History: alcohol abuse, diverticulitis, cirrhosis Nutritional Acuity: 1-High Nutrition Problem/Etiology/Sym: Increase protein needs r/t dx sepsis, AEB alb 2.3. Energy Requirement: 2200 (M- St J) Diet Type: Diet as Tolerated KWASI/REG Nutrition Intervention: Cont diet as ordered, Encourage intake Additional Diet Restrictions: OFFER NUTR SUPPLEMENT IF NO HIGH PROTEIN FOOD ORDERED OR EATEN Nutrition Monitoring & Eval Nutrition Goals: Eat 75-100% Meal RD Patient Assessment Time: [address] Assessment Type: RD Assessment Patient Nutrition Acuity: 1-High Follow Up Date: Jul 29, 2018 Nutritional Comment: 2 Pt admitted with AMS s/p fall. Pt has dx ARF and sepsis with hx of aldohol abuse and cirrhosis. Nutrition significnt labs: alb 2.3, BUN 33, creatinine 2.1, Mg 1.7, K+ 3.4, AST 197, ALT 108. Pt is recieving K+ supplment and thiamin. Pt on regular diet but only ate "bites" of first meal. Goal is to provide adequat protein r/t to increase needs of sepsis but not excessive r/t dx ARF. Will offer nutr supplement if pt doesn't consume or order a high protein food with each meal. Will cont to monitor and encourage intake. RIZWANA PERALES Jul 26, 2018 11:53
[2018-07-26] MEDS ORDERED: DIGOXIN 0.5 MG/2 ML AMP IVP ONE ×3 (12:30→18:00)
[2018-07-26] MEDS: NYSTATIN 100,000 U/GM PWD 15GM TP PRN ×2 (14:33→20:26)
[2018-07-26] MEDS ORDERED: ALBUMIN HUMAN 5% 250 ML BTL 250 ML IVPB ONE (15:00)
[2018-07-26] MEDS: ENOXAPARIN 100 MG/ML SYR SC SCH (20:18)
[2018-07-27] VITALS (80 sets, daily range): BP systolic 79–123; BP diastolic 45–100
[2018-07-27] MEDS: CEFEPIME HCL 2 GM VIAL 2 GM in NS(*) 0.9% 100 ML BAG 100 ML IVPB SCH ×2 (04:19→17:23)
[2018-07-27] MEDS: NS(*) 0.9% 1000 ML BAG 1,000 ML IV PRN (04:24)
[2018-07-27 05:20] LABS: INR 1.14
[2018-07-27 05:22] LABS: PLATELET COUNT, AUTOMATED 138 K/uL (150-450)
--- NOTE | 2018-07-27 07:08 | RADIOLOGY IMAGING REPORT ---
FACILITY: [facility] - [place] PATIENT NAME: Thai Cruz : 1940 MR: [id number] V: [id number] EXAM DATE: ORDERING PHYSICIAN: ALAN JHA TECHNOLOGIST: Location: [facility] Patient: Thai Cruz : 1940 Visit/Account:[id number] Date of Sevice: 07/27/2018 CHEST SINGLE AP 07/27/2018 06:44 hours. HISTORY: Cough. Pneumonia. COMPARISON: 07/26/2018 and studies dating to 05/25/2017 TECHNIQUE: Portable AP view of the chest. FINDINGS: Tubes/lines/hardware: There are external chest leads. Pulmonary/pleura: No change in the patchy left greater than right bibasilar opacities. There is no pn eumothorax or pleural effusion. Cardiomediastinal: The cardiac silhouette is at the upper limits of normal, stable. The mediastinal s ilhouette is within normal limits. Bones/soft tissues: No acute osseous abnormality. The visible abdomen is normal. IMPRESSION: 1. No significant interval change. Report Dictated By: Christine Melvin at 07/27/2018 7:01 AM Report E-Signed By: Christine Melvin at 07/27/2018 7:03 AM WSN:[id number]
[2018-07-27] MEDS ORDERED: MAGNESIUM SUL* 2 GM/50 ML IVPB 50 ML IVPB ONE (07:40)
[2018-07-27] MEDS: THIAMINE HCL 200 MG/2 ML INJ IVP SCH (08:46)
[2018-07-27] MEDS: ENOXAPARIN 100 MG/ML SYR SC SCH ×2 (08:47→20:33)
[2018-07-27] MEDS ORDERED: DIGOXIN 0.5 MG/2 ML AMP IVP ONE (09:00)
[2018-07-27] MEDS: DOXYCYCLINE HYCL 100 MG VIAL 100 MG in NS(*) 0.9% 250 ML BAG 250 ML IV SCH ×2 (09:22→20:33)
--- NOTE | 2018-07-27 13:17 | Hospitalist Progress Note ---
Subjective Progress Notes Subjective The patient denies new complaints. Wearing BiPAP. Physical Exam Vital Signs Date Time Temp Pulse Resp B/P (MAP) Pulse Ox O2 Delivery O2 Flow Rate FiO2 07/27/18 11:30 98 13 101/70 (80) 93 07/27/18 11:20 Bi-PAP 30.0 07/27/18 10:00 98.0 07/26/18 15:15 4.0 Intake and Output 07/27/18 07:00 Intake Total 3687 ml Output Total 860 ml Balance 2827 ml Intake Oral 0 ml IV Total 3687 ml Output Urine Total 860 ml # Bowel Movements 1 General Appearance: Alert, Awake, No Acute Distress, Afebrile ENT: Other (BiPAP mask in place. Hard of hearing.) Cardiovascular: Other (Irregularly irregular.) Respiratory: Clear to Auscultation (Decreased BS anteriorly without wheezing, rales or rhonchi.) GI: Soft and Non-Tender Extremities: Warm, Perfused Integumentary: Skin Intact without Lesion / Mass Psych: Appropriate Mood & Affect Result Diagram: 07/27/18 05007/27/18 050 Assessment and Plan Problems: (1) Altered mental status Status: Acute Assessment & Plan: He was found down at home. The events leading up to this and how long he was down are unknown. CT scan of the head was unremarkable. He does not have any obvious injury and is not in apparent pain. He is less confused today. Toxicology screen is positive for amphetamines and benzodiazepines and blood alcohol was negative. It does appear he has pneumonia as well. I suspect he probably has substance withdrawal (alcohol/benzodiazepines) and acute infection. Will continue CIWA with Ativan coverage and antibiotics/IV fluids/supportive care. (2) Sepsis Status: Acute Assessment & Plan: Probable pneumonia as the etiology. He was noted to be febrile in the field. He also had an elevated lactate level. He has been treated IV antibiotics and IV fluids. Cultures are negative to date. (3) Bacterial pneumonia Assessment & Plan: His chest x-ray and CT scan indicate a left lower lobe infiltrate. He also was found to have an elevated WBC. We have started him on empiric treatment with cefepime and doxycycline. Repeat chest x-ray shows slightly increased LLL infiltrate and possible slight RLL infiltrate as well. (4) Atrial fibrillation with RVR Assessment & Plan: He was in atrial fibrillation with a rapid rate on arrival. He was also hypotensive. He was started on IV diltiazem in the emergency department, but this was stopped secondary to hypotension. BP and HR have improved with IV fluids. A troponin was slightly elevated above normal, but not into positive range. Due to low BP, he was started on Digoxin for rate control. He was loaded with 3 doses of 0.25mg. His rate improved. Will give a dose of 0.25mg today and order a level with am lab. His magnesium was noted to be low today. Will replace with 2 grams IV and repeat a magnesium with am lab. (5) Acute renal failure Status: Acute Assessment & Plan: Most likely secondary to dehydration and acute infection. He did have an elevated creatinine at admission (3.2). He is on IV fluids as abo ve. Repeat chemistry shows improvement in creatinine to 1.8 this AM. (6) Alcoholism Status: Chronic Assessment & Plan: He does have a history of withdrawal. He has been placed on CIWA protocol and IV thiamine. Watch closely and give IV Ativan as needed. (7) Cirrhosis, alcoholic Assessment & Plan: His liver function has worsened significantly since last checked (07/2017). CT scan shows hepatomegaly and marked steatosis. Hepatitis panel is pending. Time Spent on Plan of Care: < 30 min Exam Sepsis Risk: No Definite Risk TANYA JHA MD Jul 27, 2018 13:17
[2018-07-27] MEDS: NYSTATIN 100,000 U/GM PWD 15GM TP PRN (20:34)
[2018-07-28] VITALS (24 sets, daily range): BP systolic 90–133; BP diastolic 55–98
[2018-07-28] MEDS: NS(*) 0.9% 1000 ML BAG 1,000 ML IV PRN (02:18)
[2018-07-28] MEDS: CEFEPIME HCL 2 GM VIAL 2 GM in NS(*) 0.9% 100 ML BAG 100 ML IVPB SCH ×2 (04:34→17:27)
[2018-07-28 05:49] LABS: PLATELET COUNT, AUTOMATED 136 K/uL (150-450)
[2018-07-28] MEDS: THIAMINE HCL 200 MG/2 ML INJ IVP SCH (08:56)
[2018-07-28] MEDS: ENOXAPARIN 100 MG/ML SYR SC SCH ×2 (08:58→20:32)
--- NOTE | 2018-07-28 08:59 | Hospitalist Progress Note ---
Subjective Progress Notes Subjective This patient was admitted for sepsis and pneumonia. He had no acute events overnight. Patient Complains of: Cardiovascular: No: Chest Pain Respiratory: No: Shortness of Breath Physical Exam Vital Signs Date Time Temp Pulse Resp B/P (MAP) Pulse Ox O2 Delivery O2 Flow Rate FiO2 07/28/18 08:30 107 24 103/98 (100) 77 Nasal Cannula 2.0 07/28/18 08:00 98.6 07/27/18 17:15 Intake and Output 07/28/18 07:00 Intake Total 4024 ml Output Total 1425 ml Balance 2599 ml Intake Oral 1950 ml IV Total 2074 ml Output Urine Total 1425 ml Cardiovascular: Regular Rate and Rhythm Respiratory: Clear to Auscultation Result Diagram: 07/28/1836 07/28/18535 Assessment and Plan Problems: (1) Altered mental status Status: Acute Assessment & Plan: He was found down at home. The events leading up to this and how long he was down are unknown. CT scan of the head was unremarkable. His mentation has cleared with treatment of his sepsis. (2) Sepsis Status: Acute Assessment & Plan: He was noted to be febrile in the field. He also had an elevated lactate level. He has improved with IV fluids and treatment of his infection. (3) Bacterial pneumonia Assessment & Plan: His chest x-ray and CT scan indicate a left lower lobe infiltrate. He is on empiric treatment with cefepime and doxycycline. (4) Atrial fibrillation with RVR Assessment & Plan: He was in atrial fibrillation with a rapid rate on arrival. He was also hypotensive. He was started on IV diltiazem in the emergency department, but this was stopped secondary to hypotension. A troponin was slightly elevated above normal, but not into positive range. He received a digoxin load over the weekend, and we will be starting scheduled dosing today. (5) Acute renal failure Status: Acute Assessment & Plan: He did have an elevated creatinine at admission (3.2). His levels have been improving with IV fluids. (6) Alcoholism Status: Chronic Assessment & Plan: He does have a history of withdrawal. He was on CIWA protocol and IV thiamine. (7) Cirrhosis, alcoholic Assessment & Plan: His liver function has worsened significantly since last checked (07/2017). CT scan shows hepatomegaly and marked steatosis. His liver enzymes have improved. Hepatitis panel is pending. Exam Sepsis Risk: No Definite Risk HECTOR RODRIGUEZ DO Jul 28, 2018 08:59
[2018-07-28] MEDS ORDERED: INFLUENZA VIRUS VAC 0.5ML SYR IM ONLY ONE (09:00)
[2018-07-28] MEDS: NYSTATIN 100,000 U/GM PWD 15GM TP PRN (09:04)
[2018-07-28] MEDS: DOXYCYCLINE HYCL 100 MG VIAL 100 MG in NS(*) 0.9% 250 ML BAG 250 ML IV SCH (09:05)
[2018-07-28] MEDS: DIGOXIN 0.125 MG TAB PO SCH (09:07)
--- NOTE | 2018-07-28 10:06 | NUR ---
Physical Therapy Impression PT/OT co-treat for pt safety, following co-eval, with time split for billing purposes. Pt was Mod assist for bed mobility with head of bed elevated and Mod assist x 2 for safety with walker negotiation to access BR for toileting. Thereafter, pt completed [id number] transfer toilet to W/C and then W/C to bed. Pt is very hard of hearing, and communication may play a role in pt's decreased understanding of cues given during therapy session to encourage safety with mobility. Physical Therapy Goals 1. Pt to be Min assist for bed mobility and sup <> sit transfers 2. Pt to be Min/CGA for sit <> stand transfers 3. Pt to be CGA/SBA for ambulation with least restrictive device x 100' 4. Pt to be CGA/SBA for up/down platform step to simulate entry to home. Patient's Goals
--- NOTE | 2018-07-28 10:06 | NUR ---
Physical Therapy Impression PT/OT eval completed, followed by co-treat for pt safety. Difficult to obtain accurate history and environmental information. Pt does appear confused at this time and is not present initially. Pt does state that his is unable to drive. Pt requires 2 Person Mod assist for bed mobility with head of bed raised. Pt demos very poor understanding of FWW use and unsafe method to negotiate walker. Ambulation is with a wide base of support and excessive assistance required by both PT and OT and nursing to manage IV lines, O2 tubing and walker use. Recommend stand-pivot transfers with 2 person for nursing staff initially to ensure safety. Pt will likely require further rehab prior to transition home, recommendations pending progress. Physical Therapy Goals 1. Pt to be Min assist for bed mobility and sup <> sit transfers 2. Pt to be Min/CGA for sit <> stand transfers 3. Pt to be CGA/SBA for ambulation with least restrictive device x 100' 4. Pt to be CGA/SBA for up/down platform step to simulate entry to home. Patient's Goals
--- NOTE | 2018-07-28 13:14 | NUR ---
Occupational Therapy Impression Mod A supine to sit. Mod Ax2 ambulation x30ft with RW. Max Ax2 toileting. Mod A sit<>supine. Pt with decreased safety awareness and problem solving. Requiring significant assist and v/c's to manage RW. Pt very hard of hearing, may contributed to apparent confusion and decreased ability to follow v/c's. Rec further rehab prior to discharge home. Occupational Therapy Goals 1) Pt will be Min A toilet task. 2) Pt will be Min A grooming/hygiene. 3) Pt will be Min A UB/LB dressing. 4) Pt will be educated on appropriate AE needs. Patient's Goal
[2018-07-28] MEDS: CEFDINIR 300 MG CAP PO SCH (20:32)
[2018-07-28] MEDS: DOXYCYCLINE HYCL 100 MG TAB PO SCH (20:32)
[2018-07-29 04:19] VITALS: BP 120/77
[2018-07-29 06:19] LABS: PLATELET COUNT, AUTOMATED 174 K/uL (150-450)
[2018-07-29 06:48] VITALS: BP 113/71
[2018-07-29] MEDS: CEFDINIR 300 MG CAP PO SCH ×2 (08:59→21:10)
[2018-07-29] MEDS: ENOXAPARIN 100 MG/ML SYR SC SCH ×2 (08:59→21:10)
[2018-07-29] MEDS: DOXYCYCLINE HYCL 100 MG TAB PO SCH ×2 (08:59→21:09)
[2018-07-29] MEDS: DIGOXIN 0.125 MG TAB PO SCH (08:59)
[2018-07-29] MEDS: THIAMINE HCL 100 MG TAB PO SCH (08:59)
[2018-07-29] MEDS: NYSTATIN 100,000 U/GM PWD 15GM TP PRN (08:59)
--- NOTE | 2018-07-29 11:31 | Antimicrobial Stewardship ---
Antimicrobial Stewardship Empiricly appropriate: Yes Support empiric regimen: Yes Comment Cefepime + doxycycline --> doxycycline + cefdinir Approriate Cultures done: Yes (Blood Cx x2 - NGTD, Urine Cx (-)) Renal/Hepatic dosing: Yes (Scr 3.2-->1.8, CrCl ~ 34mL/min (IBW)) IV to PO Opportunity: Yes (switched to oral) Determine cumulative duration: Day 5 Determine standard duration: 7-10 days total Verified plan for regimen: Yes Comment 78 yo M with a history of alcoholism who presented with acute mental status changes s/p a fall. Tmax afebrile WBC 12.8-->wnl Lactate 11.4 Blood and Urine Cx (-) Scr 3.2-->1.8, CrCl ~34ml/min Tbili 10.3 Influenza (-) Chest/Abd/pelvis CT-- LLL infiltrate Started on Cefepime/Doxycycline on 05/24, switched to po doxycycline/cefdinir, continue treatment for CAP for 7-10 days with cefdinir/doxycycline. Mikaela Peterson, PharmD, BCOP MIKAELA PETERSON Jul 29, 2018 11:31
[2018-07-29 11:54] VITALS: BP 123/74
--- NOTE | 2018-07-29 12:13 | NUR ---
Physical Therapy Impression PT/OT co treat for patient safety. Pt completed bed mobility with Ar and HOB completely elevated. Transfers completed with modA x2. Pt is very [place] and therefore it is difficult to discern whether decreased safety awareness is d/t cognition or difficulty hearing. Pt impulsive with ambulation, with major LOB at beginning of gait, requiring mod-maxX2 to prevent fall. Ambulation 2x50' with RW and close chair follow for safety. Pt with moderate path deviation, SpO2 88% on room air with mobility.Rec skilled nursing subacute rehab. Physical Therapy Goals 1. Pt to be Min assist for bed mobility and sup <> sit transfers 2. Pt to be Min/CGA for sit <> stand transfers 3. Pt to be CGA/SBA for ambulation with least restrictive device x 100' 4. Pt to be CGA/SBA for up/down platform step to simulate entry to home. Patient's Goals
--- NOTE | 2018-07-29 14:25 | Hospitalist Progress Note ---
Subjective Progress Notes Subjective 78M admitted for sepsis. DARION overnight, mental status improved this am. Family would like to discuss possible EtOH rehab, patient open. Patient Complains of: Respiratory: No: Cough Gastrointestinal: No Nausea, No Vomiting Physical Exam Vital Signs Date Time Temp Pulse Resp B/P (MAP) Pulse Ox O2 Delivery O2 Flow Rate FiO2 07/29/18 08:59 83 07/29/18 07:53 97 Nasal Cannula 3.0 07/29/18 06:48 97.8 20 113/71 (85) 07/29/18 05:22 30.0 Intake and Output 07/29/18 07:00 Intake Total 810 ml Output Total 1000 ml Balance -190 ml Intake Oral 810 ml Output Urine Total 1000 ml # Bowel Movements 1 General Appearance: Alert, Awake, No Acute Distress, Afebrile Neuro: No Gross deficits ENT: Normal Cardiovascular: Other (irregularly irregular) Respiratory: No Respiratory Distress (3L) GI: Soft and Non-Tender Extremities: Soft and Non Tender, Warm, Pulses, Perfused Result Diagram: 07/29/1855307/29/18553 Assessment and Plan Problems: (1) Altered mental status Status: Acute Assessment & Plan: He was found down at home. The events leading up to this and how long he was down are unknown. CT scan of the head was unremarkable. His mentation has cleared with treatment of his sepsis. Per family is now near or at baseline. (2) Sepsis Status: Acute Assessment & Plan: Resolved. He was noted to be febrile in the field. He also had an elevated lactate level. He has improved with IV fluids and treatment of his infection. (3) Bacterial pneumonia Assessment & Plan: His chest x-ray and CT scan indicate a left lower lobe infiltrate. He is on empiric treatment with cefdinir and doxycycline. (4) Atrial fibrillation with RVR Assessment & Plan: He was in atrial fibrillation with a rapid rate on arrival. He was also hypotensive. He was started on IV diltiazem in the emergency department, but this was stopped secondary to hypotension. A troponin was slightly elevated above normal, but not into positive range. He received a digoxin load over the weekend, and we will be starting scheduled dosing today. (5) Acute renal failure Status: Acute Assessment & Plan: He did have an elevated creatinine at admission (3.2). His levels have been improving with IV fluids. (6) Alcoholism Status: Chronic Assessment & Plan: He does have a history of withdrawal. He was on CIWA protocol and IV thiamine. Family and patient request resources from [facility] for alcohol abuse. (7) Cirrhosis, alcoholic Assessment & Plan: His liver function has worsened significantly since last checked (07/2017). CT scan shows hepatomegaly and marked steatosis. His liver enzymes have improved. Hepatitis panel is pending. Will get RUQ US as bilirubin has again increased, dominated by direct bilirubin. If imaging again negative this is likely due to alcoholic hepatitis. Exam Sepsis Risk: No Definite Risk ORTA KASSIDY MCGINNIS DO Jul 29, 2018 14:25
--- NOTE | 2018-07-29 14:41 | NUR ---
Occupational Therapy Impression Co-treat with PT. Pt. required Mod A x2 and fiona chair follow in order to ambulate. Pt. very impulsive and had one LOB, therapist corrected. Recommend intermediate school teacher subacute rehab upon d/c. Continue with POC. Occupational Therapy Goals 1) Pt will be Min A toilet task. 2) Pt will be Min A grooming/hygiene. 3) Pt will be Min A UB/LB dressing. 4) Pt will be educated on appropriate AE needs. Patient's Goal
[2018-07-29 15:30] VITALS: BP 140/108
--- NOTE | 2018-07-29 16:08 | Medical Nutrition Therapy ---
Nutrition Anthropometrics Height (Inches): 69.00 Height (Calculated Centimeters: 175.605634 Weight (Pounds): 229 Weight (Calculated Kilograms): 103.873 BMI: 31.7 Adams Nutrition Score: Adequate Adams Nutrition Risk Score: 17 Dietary Referral Nutrition Risk Factors: Nutrition Risk Comment: Physical Findings Physical Appearance: Obese BMI 30-39 Skin Appearance Skin Appearance: Edema Edema Location Modifier: Both Edema Location: Upper Extremity Type of Edema: Degree of Edema: Gastrointestinal Symptoms GI Symtoms: Tube Present: Bowel Sounds: Recent Bowel Pattern: Stool Characteristics: Nutritional Diagnosis Nutritional Risk Acuity 1: Acute/ES Renal Nutritional Risk Acuity 2: Swallowing Problem, Sepsis Past Medical History: alcohol abuse, diverticulitis, cirrhosis Nutritional Acuity: 1-High Nutrition Problem/Etiology/Sym: Increase protein needs r/t dx sepsis, AEB alb 2.3. Energy Requirement: 2200 (M- St J) Adjusted Energy Requirement Re: 182 (.8GM/LG) Protein Requirement: 82 (.8GM/LG) Fluid Requirement: 2200 (1KCAL/ML) Diet Type: Dysphagia Stage 2 Nutrition Intervention: Cont diet as ordered, Encourage intake Additional Diet Restrictions: OFFER NUTR SUPPLEMENT IF NO HIGH PROTEIN FOOD ORDERED OR EATEN Nutrition Monitoring & Eval Nutrition Goals: Eat 75-100% Meal RD Patient Assessment Time: [address] Assessment Type: RD Re-Assessment Patient Nutrition Acuity: 1-High Follow Up Date: Aug 01, 2018 Nutritional Comment: 07/26 Pt admitted with AMS s/p fall. Pt has dx ARF and sepsis with hx of aldohol abuse and cirrhosis. Nutrition significnt labs: alb 2.3, BUN 33, creatinine 2.1, Mg 1.7, K+ 3.4, AST 197, ALT 108. Pt is recieving K+ supplment and thiamin. Pt on regular diet but only ate "bites" of first meal. Goal is to provide adequat protein r/t to increase needs of sepsis but not excessive r/t dx ARF. Will offer nutr supplement if pt doesn't consume or order a high protein food with each meal. Will cont to monitor and encourage intake. BK 07/29 Pt was changed to dyspagia 2 diet. Per , pt having trouble swallowing r/t flem and mucus from pnuemonia. However states has been having swallowing issues since May. Pt may benefit from SPL rob. Intake has improved with change in diet. Overall intake average 36% however today pt eating 75-100%. pt cont elevated BUN at 26 and elevated creatinine at 1.8 but has improved from admitting. RIZWANA PERALES Jul 29, 2018 16:08
[2018-07-29 19:43] VITALS: BP 126/81
[2018-07-30 09:38] VITALS: BP 121/75
[2018-07-30] MEDS: CEFDINIR 300 MG CAP PO SCH ×2 (09:41→20:44)
[2018-07-30] MEDS: DOXYCYCLINE HYCL 100 MG TAB PO SCH ×2 (09:41→20:44)
[2018-07-30] MEDS: ENOXAPARIN 100 MG/ML SYR SC SCH ×2 (09:41→20:45)
[2018-07-30] MEDS: THIAMINE HCL 100 MG TAB PO SCH (09:41)
[2018-07-30] MEDS: DIGOXIN 0.125 MG TAB PO SCH (09:44)
--- NOTE | 2018-07-30 11:46 | RADIOLOGY IMAGING REPORT ---
FACILITY: [facility] PATIENT NAME: Hector Cruz : 1940 MR: [id number] V: [id number] EXAM DATE: ORDERING PHYSICIAN: HECTOR RODRIGUEZ TECHNOLOGIST: Location: [facility] Patient: Hector Cruz : 1940 Visit/Account:[id number] Date of Sevice: 07/30/2018 Limited abdominal ultrasound HISTORY: . Hyperbilirubinemia COMPARISON: None FINDINGS: Gallbladder: Somewhat hydropic appearing gallbladder with a width measuring maximally at approximatel y 4 cm. No wall edema. No para cholecystic fluid. There is a shadowing 7 mm stone in the neck of t he gallbladder. Liver: Increased homogenous echogenicity within the liver compatible fatty infiltrative change. No f ocal liver lesions. Common duct: Mildly prominent common bile duct measuring 9 mm. Pancreas: Pancreas is obscured Right kidney: 12 x 7 x 5.5 cm in size. No hydronephrosis. No cortical mass lesions. Upper abdominal aorta and IVC: Patent. Ascites: None visualized. IMPRESSION: Single gallstone near the neck of the gallbladder. Somewhat hydropic appearing gallbladder with no e vidence of cholecystitis. Common bile duct 9 mm. Similar to the previous CT scan measurement 2016. Single gallstone present within the gallbladder at that time as well. Report Dictated By: Keo Warren MD at 07/30/2018 11:24 AM Report E-Signed By: Keo Warren MD at 07/30/2018 11:42 AM WSN:[id number]
--- NOTE | 2018-07-30 12:07 | NUR ---
Occupational Therapy Impression Pt. required total A to perform toileting activities, Min A to perform supine to sit EOB transfer and CGA to perform stand step pivot transfer with use of FWW with CGA. Recommend d/c to [facility] subacute rehab. Continue with POC. Occupational Therapy Goals 1) Pt will be Min A toilet task. 2) Pt will be Min A grooming/hygiene. 3) Pt will be Min A UB/LB dressing. 4) Pt will be educated on appropriate AE needs. Patient's Goal
--- NOTE | 2018-07-30 12:08 | NUR ---
OCCUPATIONAL THERAPY Dressing Assistance: Total A for LB dressing, Min A to change gown. Dressing Aid Required: Bathing Assistance: Bathing Equipment: Home Assessment: Not Completed Feeding Assistance: Set- up Feeding Specialized Equipment: N/A Toilet Use: Total Assistance 1 person assist (catheter still in place) Verbalizes Needs: Yes Understands Precautions: No Cooperative: Yes Family Teaching: No Occupational Therapy Comment: Recommend d/c to nursing home subacute rehab.
--- NOTE | 2018-07-30 15:28 | Hospitalist Progress Note ---
Subjective Progress Notes Subjective He denies nausea or pain. No concerns from staff except that he continues to be profoundly weak. Physical Exam Vital Signs Date Time Temp Pulse Resp B/P (MAP) Pulse Ox O2 Delivery O2 Flow Rate FiO2 07/30/18 09:51 91 Nasal Cannula 0.5 07/30/18 09:44 72 07/30/18 09:38 98.7 20 121/75 (90) 07/30/18 01:06 30.0 Intake and Output 07/30/18 07:00 Intake Total 965 ml Output Total 950 ml Balance 15 ml Intake Oral 965 ml Output Urine Total 950 ml General Appearance: Alert, Awake, No Acute Distress Cardiovascular: Regular Rate and Rhythm Respiratory: Clear to Auscultation GI: Soft and Non-Tender Extremities: Edema (trace pitting edema in ankles bilaterally) Integumentary: Jaundice Result Diagram: 07/29/18 0554 07/30/18 0524 Assessment and Plan Problems: (1) Weakness Status: Acute Assessment & Plan: Secondary to sepsis and baseline deconditioning. Therapy is recommending a [facility] subacute rehab facility to help him regain strength. KAVITHA is working with the family to find a good location. (2) Bacterial pneumonia Assessment & Plan: His chest x-ray and CT scan indicate a left lower lobe infiltrate. He is on empiric treatment with cefdinir and doxycycline. He is afebrile, on less O2, and now has a normal WBC. (3) Atrial fibrillation with RVR Assessment & Plan: He was in atrial fibrillation with a rapid rate on arrival. He was also hypotensive. He was started on IV diltiazem in the emergency department, but this was stopped secondary to hypotension. A troponin was slightly elevated above normal, but not into positive range. He received a digoxin load, and now on scheduled dosing. Will check a level tomorrow. (4) Acute renal failure Status: Acute Assessment & Plan: His baseline creatinine was about 1.3. He did have an elevated creatinine at admission (3.2). His levels had been improving with IV fluids, but have plateaued at about 1.8. CT of the abdomen on admission didn't show any hydronephrosis. He has had a Rainey catheter in place during the entire admission. Will follow. (5) Sepsis Status: Acute Assessment & Plan: Resolved. He was noted to be febrile in the field. He also had an elevated lactate level. He has improved with IV fluids and treatment of his infection. (6) Altered mental status Status: Acute Assessment & Plan: He was found down at home. The events leading up to this and how long he was down are unknown. CT scan of the head was unremarkable. His mentation has cleared with treatment of his sepsis. Per family is now near or at baseline. (7) Cirrhosis, alcoholic Assessment & Plan: His liver function has worsened significantly since last checked (07/2017). CT scan shows hepatomegaly and marked steatosis. His liver enzymes have improved. Hepatitis panel is pending. As bilirubin has again increased, dominated by direct bilirubin likely related to cirrhosis. RUQ US shows no evidence of new ductal dilation (common bile duct at 9mm as it was in 2016) or obstruction. INR and ammonia have been normal during this admission. (8) Alcoholism Status: Chronic Assessment & Plan: He does have a history of withdrawal. He was on CIWA protocol and IV thiamine. Family and patient request resources from [facility] for alcohol abuse. Exam Sepsis Risk: No Definite Risk DESHAWN GUIDRY MD Jul 30, 2018 15:28
[2018-07-30 16:15] VITALS: BP 123/78
[2018-07-30 19:36] VITALS: BP 123/87
[2018-07-31 06:22] LABS: PLATELET COUNT, AUTOMATED 173 K/uL (150-450)
[2018-07-31 07:53] VITALS: BP 126/76
[2018-07-31] MEDS: CEFDINIR 300 MG CAP PO SCH ×2 (09:40→22:23)
[2018-07-31] MEDS: THIAMINE HCL 100 MG TAB PO SCH (09:40)
[2018-07-31] MEDS: ENOXAPARIN 100 MG/ML SYR SC SCH ×2 (09:40→22:24)
[2018-07-31] MEDS: DOXYCYCLINE HYCL 100 MG TAB PO SCH ×2 (09:40→22:23)
[2018-07-31] MEDS: DIGOXIN 0.125 MG TAB PO SCH (09:46)
--- NOTE | 2018-07-31 14:22 | Hospitalist Progress Note ---
Subjective Progress Notes Subjective 78M admitted for sepsis. DARION overnight, awaiting placement. Patient Complains of: Neurological: No: Confusion Cardiovascular: No: Chest Pain Gastrointestinal: No Nausea, No Vomiting Physical Exam Vital Signs Date Time Temp Pulse Resp B/P (MAP) Pulse Ox O2 Delivery O2 Flow Rate FiO2 07/31/18 09:46 86 07/31/18 09:40 Nasal Cannula 0.5 07/31/18 07:53 97.8 20 126/76 (93) 91 07/30/18 01:06 30.0 Intake and Output 07/31/18 07:00 Intake Total 420 ml Output Total 1225 ml Balance -805 ml Intake Oral 420 ml Output Urine Total 1225 ml # Bowel Movements 1 General Appearance: Alert, Awake, No Acute Distress, Afebrile Neuro: No Gross deficits ENT: Normal (jaundiced) Cardiovascular: Normal Rhythm & Peripheral Pulses Respiratory: No Respiratory Distress GI: Soft and Non-Tender Extremities: Soft and Non Tender, Warm, Pulses, Perfused Integumentary: Jaundice Result Diagram: 07/31/18 0534 07/31/18533 Assessment and Plan Problems: (1) Weakness Status: Acute Assessment & Plan: Secondary to sepsis and baseline deconditioning. Therapy is recommending a [facility] subacute rehab facility to help him regain strength. [facility] is working with the family to find a good location. (2) Bacterial pneumonia Assessment & Plan: His chest x-ray and CT scan indicate a left lower lobe infiltrate. He is on empiric treatment with cefdinir and doxycycline. He is afebrile, on less O2, and now has a normal WBC. (3) Atrial fibrillation with RVR Assessment & Plan: He was in atrial fibrillation with a rapid rate on arrival. He was also hypotensive. He was started on IV diltiazem in the emergency department, but this was stopped secondary to hypotension. A troponin was slightly elevated above normal, but not into positive range. He received a digoxin load, and now on scheduled dosing. Will check a level tomorrow. (4) Acute renal failure Status: Acute Assessment & Plan: His baseline creatinine was about 1.3. He did have an elevated creatinine at admission (3.2). His levels had been improving with IV fluids, but have plateaued at about 1.8. CT of the abdomen on admission didn't show any hydronephrosis. He has had a Rainey catheter in place during the entire admission. Will follow. (5) Sepsis Status: Acute Assessment & Plan: Resolved. He was noted to be febrile in the field. He also had an elevated lactate level. He has improved with IV fluids and treatment of his infection. (6) Altered mental status Status: Acute Assessment & Plan: He was found down at home. The events leading up to this and how long he was down are unknown. CT scan of the head was unremarkable. His mentation has cleared with treatment of his sepsis. Per family is now near or at baseline. (7) Cirrhosis, alcoholic Assessment & Plan: His liver function has worsened significantly since last checked (07/2017). CT scan shows hepatomegaly and marked steatosis. His liver enzymes have improved. Hepatitis panel is pending. As bilirubin has again inc reased, dominated by direct bilirubin likely related to cirrhosis. RUQ US shows no evidence of new ductal dilation (common bile duct at 9mm as it was in 2016) or obstruction. INR and ammonia have been normal during this admission. (8) Alcoholism Status: Chronic Assessment & Plan: He does have a history of withdrawal. He was on CIWA protocol and IV thiamine. Family and patient request resources from [facility] for alcohol abuse. Exam Sepsis Risk: No Definite Risk ORTA KASSIDY MCGININS DO Jul 31, 2018 14:22
--- NOTE | 2018-07-31 14:31 | NUR ---
Occupational Therapy Impression Pt. ambulated to bathroom and then into hallway with use of FWW with CGA and fiona-chair follow. Pt. did vear to the right while ambulating requiring verbal cues to correct. Pt. on room air with SPO2 at 87% during ambulation activity. Pt. required Max A to perform toileting activities. Recommend d/c to alf subacute rehab. Continue with POC. Occupational Therapy Goals 1) Pt will be Min A toilet task. 2) Pt will be Min A grooming/hygiene. 3) Pt will be Min A UB/LB dressing. 4) Pt will be educated on appropriate AE needs. Patient's Goal
[2018-07-31 16:23] VITALS: BP 126/71
[2018-07-31 19:52] VITALS: BP 126/75
[2018-08-01 04:08] VITALS: BP 113/74
[2018-08-01 07:17] VITALS: BP 130/78
[2018-08-01] MEDS: DIGOXIN 0.125 MG TAB PO SCH (08:38)
[2018-08-01] MEDS: DOXYCYCLINE HYCL 100 MG TAB PO SCH ×2 (08:38→21:11)
[2018-08-01] MEDS: THIAMINE HCL 100 MG TAB PO SCH (08:38)
[2018-08-01] MEDS: LACTULOSE 10 GM/15 ML UDCUP PO SCH (08:38)
[2018-08-01] MEDS: CEFDINIR 300 MG CAP PO SCH ×2 (08:39→21:11)
[2018-08-01] MEDS: NS(*) 0.9% 1000 ML BAG 1,000 ML IV PRN (08:41)
[2018-08-01] MEDS ORDERED: ENOXAPARIN 100 MG/ML SYR SC SCH (09:00)
--- NOTE | 2018-08-01 11:44 | Medical Nutrition Therapy ---
Nutrition Anthropometrics Height (Inches): 69.00 Height (Calculated Centimeters: [phone] Weight (Pounds): 228 Weight (Calculated Kilograms): 103.618 BMI: 31.7 Aadms Nutrition Score: Adequate Adams Nutrition Risk Score: 16 Dietary Referral Nutrition Risk Factors: Nutrition Risk Comment: Physical Findings Physical Appearance: Obese BMI 30-39 Skin Appearance Skin Appearance: Edema Edema Location Modifier: Both Edema Location: Foot Type of Edema: Degree of Edema: 1+ Gastrointestinal Symptoms GI Symtoms: Tube Present: Bowel Sounds: Recent Bowel Pattern: Stool Characteristics: Nutritional Diagnosis Nutritional Risk Acuity 1: Acute/ES Renal Nutritional Risk Acuity 2: Swallowing Problem, Sepsis Past Medical History: alcohol abuse, diverticulitis, cirrhosis Nutritional Acuity: 1-High Nutrition Problem/Etiology/Sym: Increase protein needs r/t dx sepsis, AEB alb 2.3. Energy Requirement: 2200 (M- St J) Adjusted Energy Requirement Re: 182 (.8GM/LG) Protein Requirement: 82 (.8GM/LG) Fluid Requirement: 2200 (1KCAL/ML) Diet Type: Dysphagia Stage 2 Nutrition Intervention: Cont diet as ordered, Encourage intake Additional Diet Restrictions: OFFER NUTR SUPPLEMENT IF NO HIGH PROTEIN FOOD ORDERED OR EATEN Nutrition Monitoring & Eval Nutrition Goals: Eat 50-100% Meal, Drink > 2 liters/day Nutrition Follow-Up: Fair Intake RD Patient Assessment Time: [address] Assessment Type: RD Re-Assessment Patient Nutrition Acuity: 1-High Follow Up Date: Aug 04, 2018 Nutritional Comment: 07/26 Pt admitted with AMS s/p fall. Pt has dx ARF and sepsis with hx of aldohol abuse and cirrhosis. Nutrition significnt labs: alb 2.3, BUN 33, creatinine 2.1, Mg 1.7, K+ 3.4, AST 197, ALT 108. Pt is recieving K+ supplment and thiamin. Pt on regular diet but only ate "bites" of first meal. Goal is to provide adequat protein r/t to increase needs of sepsis but not excessive r/t dx ARF. Will offer nutr supplement if pt doesn't consume or order a high protein food with each meal. Will cont to monitor and encourage intake. BK 07/29 Pt was changed to dyspagia 2 diet. Per , pt having trouble swallowing r/t flem and mucus from pnuemonia. However states has been having swallowing issues since May. Pt may benefit from SPL rob. Intake has improved with change in diet. Overall intake average 36% however today pt eating 75-100%. pt cont elevated BUN at 26 and elevated creatinine at 1.8 but has improved from admitting. BK 08/01/18 Pt progressed from NPO back to dysphagia 2 diet. Pt consuming 25-75% of meals. BUN of 37 and creatinine of 2.20 are elevated, as is bilirubin of 12.0. AST of 142 and ALT of 77 are elevated. Total protein of 4.9 and albumin of 2.3 are low. Continue to monitor for adequate intakes. -DIVYA PATEL Aug 01, 2018 11:44
--- NOTE | 2018-08-01 12:48 | Hospitalist Progress Note ---
Subjective Progress Notes Subjective He reports feeling weak and achy. No fever. Physical Exam Vital Signs Date Time Temp Pulse Resp B/P (MAP) Pulse Ox O2 Delivery O2 Flow Rate FiO2 08/01/18 09:12 91 Nasal Cannula 2.0 08/01/18 08:38 84 08/01/18 07:17 98.3 22 130/78 (95) 07/30/18 01:06 30.0 Intake and Output 08/01/18 06:59 Intake Total 680 ml Output Total 425 ml Balance 255 ml Intake Oral 680 ml Output Urine Total 425 ml # Voids 4 # Bowel Movements 4 General Appearance: Alert, Awake, Other (jaundiced) Cardiovascular: Other (Irregular) Respiratory: Other (few scattered rhonchi) Chest: No Tenderness GI: Other (Soft/BS present/slightly distended/reducible umbilical hernia/no obvious fluid wave/liver edge palpable below right costal margin) Extremities: Warm, Perfused, Edema Result Diagram: 07/31/1834 07/31/18533 Assessment and Plan Problems: (1) Weakness Status: Acute Assessment & Plan: Secondary to sepsis and baseline deconditioning. Therapy is recommending a [facility] sub[facility] rehab facility to help him regain strength. Transitional care nursing is working with the family to find a good location. (2) Bacterial pneumonia Assessment & Plan: His chest x-ray and CT scan indicate a left lower lobe infiltrate. He is now on treatment with oral cefdinir and doxycycline following IV antibiotics. He is afebrile, on less O2, and now has a normal WBC. (3) Atrial fibrillation with RVR Assessment & Plan: He was in atrial fibrillation with a rapid rate on arrival. He was also hypotensive. He was started on IV diltiazem in the emergency department, but this was stopped secondary to hypotension. A troponin was slightly elevated above normal, but not into positive range. He received a digoxin load and is now on scheduled dosing. (4) Acute renal failure Status: Acute Assessment & Plan: His baseline creatinine was about 1.3. He did have an elevated creatinine at admission (3.2). His levels had been improving with IV fluids, but have plateaued at about 1.8-2.0. CT of the abdomen on admission didn't show any hydronephrosis. He has had a Rainey catheter in place during the entire admission. His oral intake has been marginal. His creatinine has slowly increased to 2.2. Will resume IV fluids and monitor closely. (5) Sepsis Status: Acute Assessment & Plan: Resolved. He was noted to be febrile in the field. He also had an elevated lactate level. He has improved with IV fluids and treatment of his infection. (6) Altered mental status Status: Acute Assessment & Plan: He was found down at home. The events leading up to this and how long he was down are unknown. CT scan of the head was unremarkable. His mentation has cleared with treatment of his sepsis. He most likely had a component of withdrawal as well. Per family, he is now near or at baseline. (7) Cirrhosis, alcoholic Assessment & Plan: His liver function has worsened significantly since last checked (07/2017). CT scan shows hepatomegaly and marked steatosis. His liver enzymes have improved. Hepatitis panel is negative. RUQ US shows no evidence of new ductal dilation (common bile duct at 9mm as it was in 2016) or obstruction. INR and ammonia have been normal during this admission. Watch labs closely. Start low dose lactulose. (8) Alcoholism Status: Chronic Assessment & Plan: He does have a history of withdrawal. He was on CIWA protocol and IV thiamine. Family and patient request resources from [facility] for alcohol abuse. Exam Sepsis Risk: No Definite Risk ALAN JHA MD Aug 01, 2018 12:47
--- NOTE | 2018-08-01 12:57 | NUR ---
Occupational Therapy Impression SBA supine to sit HOB raised. CGA ambulation with RW. V/c's for sequencing safe sit<>stands and appropriate management of RW. Max A toileting. Mod A shower. Max A LB dressing. Min A UB dressing. Rec long-term rehab. Occupational Therapy Goals 1) Pt will be Min A toilet task. 2) Pt will be Min A grooming/hygiene. 3) Pt will be Min A UB/LB dressing. 4) Pt will be educated on appropriate AE needs. Patient's Goal
[2018-08-01 16:07] VITALS: BP 112/70
--- NOTE | 2018-08-01 17:00 | NUR ---
Physical Therapy Impression Pt not seen by PT on 07/31/18 and 08/01/18 due to staffing concerns, however, mobility was addressed with nursing and OT visits. PT continues to recommend Long-term care rehab and family is considering [facility] options in order to be closer to extended family and for spousal support. Physical Therapy Goals 1. Pt to be Min assist for bed mobility and sup <> sit transfers 2. Pt to be Min/CGA for sit <> stand transfers 3. Pt to be CGA/SBA for ambulation with least restrictive device x 100' 4. Pt to be CGA/SBA for up/down platform step to simulate entry to home. Patient's Goals
[2018-08-01 18:47] VITALS: BP 130/90
[2018-08-02 02:11] VITALS: BP 129/72
[2018-08-02 06:44] LABS: PLATELET COUNT, AUTOMATED 164 K/uL (150-450)
[2018-08-02 07:17] VITALS: BP 123/73
[2018-08-02] MEDS: LACTULOSE 10 GM/15 ML UDCUP PO SCH (09:29)
[2018-08-02] MEDS: THIAMINE HCL 100 MG TAB PO SCH (09:29)
[2018-08-02] MEDS: DOXYCYCLINE HYCL 100 MG TAB PO SCH (09:29)
[2018-08-02] MEDS: DIGOXIN 0.125 MG TAB PO SCH (09:29)
--- NOTE | 2018-08-02 11:36 | Hospitalist Progress Note ---
Subjective Progress Notes Subjective This patient was admitted for pneumonia. He had no acute events overnight. Patient Complains of: Cardiovascular: No: Chest Pain Respiratory: No: Shortness of Breath Physical Exam Vital Signs Date Time Temp Pulse Resp B/P (MAP) Pulse Ox O2 Delivery O2 Flow Rate FiO2 08/02/18 10:08 89 Nasal Cannula 1.0 08/02/18 09:29 84 08/02/18 07:17 97.7 18 123/73 (90) 08/01/18 21:50 30.0 Intake and Output 08/02/18 07:00 Intake Total 1506 ml Balance 1506 ml Intake Oral 506 ml IV Total 1000 ml # Voids 7 # Bowel Movements 6 Neuro: No Gross deficits Eyes: PERRLA Cardiovascular: Regular Rate and Rhythm Respiratory: Clear to Auscultation Extremities: No Edema Integumentary: No Cyanosis Result Diagram: 08/02/1844 08/02/1844 Assessment and Plan Problems: (1) Weakness Status: Acute Assessment & Plan: Secondary to sepsis and baseline deconditioning. 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 Transitional care nursing is working with the family to find a good location. (2) Bacterial pneumonia Assessment & Plan: His chest x-ray and CT scan indicate a left lower lobe infiltrate. He was on treatment with cefepime and doxycycline. He then went to oral treatment with cefdinir and doxycycline. We stopped antibiotics today. He will require a repeat chest x-ray to document resolution. (3) Atrial fibrillation with RVR Assessment & Plan: He was in atrial fibrillation with a rapid rate on arrival. He was also hypotensive. He was started on IV diltiazem in the emergency department, but this was stopped secondary to hypotension. A troponin was slightly elevated above normal, but not into positive range. He received a digoxin load and is now on scheduled dosing. He was on Lovenox, but this has been stopped secondary to concerns of bleeding. (4) Acute renal failure Status: Acute Assessment & Plan: He did have an elevated creatinine at admission (3.2). His levels had improved with IV fluids, but are now trending back up. IV fluids were restarted last night. (5) Sepsis Status: Acute Assessment & Plan: Resolved. He was noted to be febrile in the field. He also had an elevated lactate level. He has improved with IV fluids and treatment of his infection. (6) Altered mental status Status: Acute Assessment & Plan: He was found down at home. The events leading up to this and how long he was down are unknown. CT scan of the head was unremarkable. His mentation has cleared with treatment of his sepsis. He most likely had a component of withdrawal as well. Per family, he is now near or at baseline. (7) Cirrhosis, alcoholic Assessment & Plan: His liver function has worsened significantly since last checked (07/2017). CT scan shows hepatomegaly and marked steatosis. An ammonia level is normal. (8) Alcoholism Status: Chronic Assessment & Plan: He does have a history of withdrawal. He was on CIWA protocol and IV thiamine. Family and patient request resources from [facility] for alcohol abuse. (9) Melena Assessment & Plan: He has developed melena and his Hgb has been drifting down. Lovenox has been discontinued and stool is sent of occult blood. Exam Sepsis Risk: No Definite Risk HECTOR RODRIGUEZ DO Aug 02, 2018 11:36
[2018-08-02] MEDS: NS(*) 0.9% 1000 ML BAG 1,000 ML IV PRN (13:03)
[2018-08-02] MEDS ORDERED: LIDOCAINE 2% VISC SLN 15ML UDC PO PRN (13:55)
[2018-08-02 14:27] VITALS: BP 90/79
[2018-08-02 15:30] VITALS: BP 118/70
[2018-08-02] MEDS: SUCRALFATE 1 GM TAB PO SCH ×2 (16:32→20:58)
[2018-08-02 19:40] VITALS: BP 131/75
[2018-08-02] MEDS: PANTOPRAZOLE SOD 40 MG TABEC PO SCH (20:58)
[2018-08-03 00:35] VITALS: BP 122/69
[2018-08-03] MEDS: NS(*) 0.9% 1000 ML BAG 1,000 ML IV PRN ×2 (02:15→15:46)
[2018-08-03 04:04] VITALS: BP 133/72
[2018-08-03] MEDS: SUCRALFATE 1 GM TAB PO SCH ×4 (05:44→21:14)
[2018-08-03 07:54] VITALS: BP 119/69
[2018-08-03] MEDS: DIGOXIN 0.125 MG TAB PO SCH (08:43)
[2018-08-03] MEDS: PANTOPRAZOLE SOD 40 MG TABEC PO SCH ×2 (08:43→21:14)
[2018-08-03] MEDS: THIAMINE HCL 100 MG TAB PO SCH (08:43)
[2018-08-03] MEDS: LACTULOSE 10 GM/15 ML UDCUP PO SCH ×2 (08:43→09:00)
[2018-08-03 11:33] VITALS: BP 124/69
--- NOTE | 2018-08-03 11:38 | Hospitalist Progress Note ---
Subjective Progress Notes Subjective He is without complaints. He drank some protein shake, but didn't eat his eggs. Physical Exam Vital Signs Date Time Temp Pulse Resp B/P (MAP) Pulse Ox O2 Delivery O2 Flow Rate FiO2 08/03/18 08:43 79 08/03/18 08:15 93 Nasal Cannula 2.0 08/03/18 07:54 98.2 24 119/69 (86) 08/01/18 21:50 30.0 Intake and Output 08/03/18 07:00 Intake Total 3640 ml Balance 3640 ml Intake Oral 740 ml IV Total 2900 ml # Voids 6 # Bowel Movements 3 General Appearance: Alert, Awake, No Acute Distress GI: Soft and Non-Tender Extremities: Edema (2+ pitting in shins ) Integumentary: Jaundice Result Diagram: 08/02/1844 08/02/18543 Assessment and Plan Problems: (1) Cirrhosis, alcoholic Assessment & Plan: His liver function has worsened significantly since last checked (07/2017). CT scan shows hepatomegaly and marked steatosis. His liver enzymes have remained elevated, but the total bilirubin (mostly direct) continues to rise. Hepatitis panel is negative. RUQ US shows no evidence of new ductal dilation (common bile duct at 9mm as it was in 2016) or obstruction. INR and ammonia have been normal during this admission. He was started on low dose Lactulose. Will recheck INR/ammonia. (2) Acute renal failure Status: Acute Assessment & Plan: He did have an elevated creatinine at admission (3.2). His levels had improved with IV fluids, but are now trending back up. IV fluids were restarted. Renal US, Abdiel, UCr, Uprotein are pending. Concerned about ATN vs hepatorenal syndrome. (3) Weakness Status: Acute Assessment & Plan: Secondary to sepsis and baseline deconditioning. Therapy is recommending a correction subacute rehab facility to help him regain strength. Transitional care nursing is working with the family to find a good location. (4) Atrial fibrillation with RVR Assessment & Plan: He was in atrial fibrillation with a rapid rate on arrival. He was also hypotensive. He was started on IV diltiazem in the emergency department, but this was stopped secondary to hypotension. A troponin was slightly elevated above normal, but not into positive range. He received a digoxin load and is now on scheduled dosing, will check a digoxin level secondary to worsening renal function. He was on Lovenox, but this has been stopped secondary to concerns of bleeding. (5) Melena Assessment & Plan: He has developed melena and his Hgb has been drifting down. Lovenox has been discontinued and stool is positive for occult blood. Recheck Hgb tomorrow. He will need endoscopy investigation as an outpatient unless his Hgb continues to go down and then would need it sooner. (6) Bacterial pneumonia Assessment & Plan: His chest x-ray and CT scan indicate a left lower lobe infiltrate. He was on treatment with cefepime and doxycycline. He then went to oral treatment with cefdinir and doxycycline. We stopped antibiotics on 08/02. He will require a repeat chest x-ray to document resolution. (7) Sepsis Status: Resolved Assessment & Plan: Resolved. He was noted to be febrile in the field. He also had an elevated lactate level. He has improved with IV fluids and treatment of his infection. (8) Altered mental status Status: Acute Assessment & Plan: He was found down at home. The events leading up to this and how long he was down are unknown. CT scan of the head was unremarkable. His mentation has cleared with treatment of his sepsis. He most likely had a component of withdrawal as well. Per family, he is now near or at baseline. (9) Alcoholism Status: Chronic Assessment & Plan: He does have a history of withdrawal. He was on CIWA protocol and IV thiamine. Family and patient request resources from [facility] for alcohol abuse. Exam Sepsis Risk: No Definite Risk DESHAWN GUIDRY MD Aug 03, 2018 11:38
[2018-08-03 12:11] LABS: INR 1.14
[2018-08-03 14:32] VITALS: BP 121/70
[2018-08-03] MEDS ORDERED: NS(*) 0.9% 500 ML BAG 500 ML IV ONE (15:35)
[2018-08-03] MEDS ORDERED: LORazepam 2 MG/ML VIAL IVP ONE ×2 (16:30→17:35)
--- NOTE | 2018-08-03 17:15 | RADIOLOGY IMAGING REPORT ---
FACILITY: [facility] PATIENT NAME: Thai Cruz : 1940 MR: [id number] V: [id number] EXAM DATE: ORDERING PHYSICIAN: DESHAWN GUIDRY TECHNOLOGIST: Location: [facility] Patient: Thai Cruz : 1940 Visit/Account:[id number] Date of Sevice: 08/03/2018 KIDNEYS HISTORY: ARF EXAMINATION: Renal ultrasound COMPARISON: None. FINDINGS: Kidneys: Right kidney- 10 x 6 x 6 cm. No hydronephrosis. No cortical mass lesions. Normal renal echogenicity. No cortical thinning Left kidney- 11.5 x 5.5 x 5.8 cm. No hydronephrosis. No cortical mass lesions. No cortical thinning. Uniform and symmetric blood flow in each kidney by Doppler ultrasound. Hydronephrosis: none. Bladder: Bladder with 1 84 cc prevoid. 19 cc post void. Bilateral ureteral jets seen. Abdominal aorta and IVC: patent by Doppler ultrasound. IMPRESSION: Negative ultrasound for acute pathology. Specifically, no hydronephrosis. Report Dictated By: Keo Warren MD at 08/03/2018 5:08 PM Report E-Signed By: Keo Warren MD at 08/03/2018 5:11 PM WSN:[id number]
[2018-08-03 18:57] VITALS: BP 126/73
--- NOTE | 2018-08-03 19:07 | RADIOLOGY IMAGING REPORT ---
FACILITY: [facility] PATIENT NAME: Thai Cruz : 1940 MR: [id number] V: [id number] EXAM DATE: ORDERING PHYSICIAN: DESHAWN GUIDRY TECHNOLOGIST: Location: [facility] Patient: Thai Cruz : 1940 Visit/Account:[id number] Date of Sevice: 08/03/2018 MR ABDOMEN MRCP W & W/O CONTRAST INDICATION: Rising total bilirubin. COMPARISON: CT of the abdomen pelvis on 07/25/2018. FINDINGS: Multiplanar, multisequence images of the abdomen were obtained prior to and after demonst ration of intravenous contrast of 15 minutes MultiHance. No reaction to contrast noted. 3-D reconstru ctions of the biliary system. The gallbladder again shows a small stone. The gallbladder wall is minimally thickened at 3.4 mm. Per icholecystic fluid and inflammation is present. There is some inflammation extending along the inferi or aspect gallbladder and along the duodenum and pancreatic head region. The gallbladder does show mi ld diffuse wall enhancement without focal wall lesion or abnormality. Common bile duct is not dilated and shows a normal appearance. The liver is mildly enlarged and shows diffuse decrease/dropout signal and out of phase sequences con sistent fatty infiltration. No focal lesions are identified. The hepatic vessels appear to be patent. No periportal abnormality. The pancreas shows no focal abnormality or ductal dilatation. Normal enha ncement of the pancreas. The spleen does show mild enlargement on the coronal images measuring 15 cm and the craniocaudad dime nsion without focal normality. The adrenal glands and left kidney are normal. The right kidney does s how 2 stable cysts in the superior aspect measuring 1.9 cm and 2.2 cm. Right kidney is otherwise unre markable. The visualized gastrointestinal tract is unremarkable. The duodenum shows no discrete focal abnormality. There is no other indication of free fluid or inflammation. No fluid collections or lym phadenopathy. Lung bases are clear. Surrounding soft tissues are unremarkable. IMPRESSION: 1. Cholelithiasis with findings suggestive of acute cholecystitis. Common bile duct appears normal. 2. There are some inflammatory changes extending from the gallbladder to the duodenum and head of jackson creas. This is likely due to the cholecystitis. Other etiologies would include early pancreatitis or duodenitis. Although no focal abnormality seen in the duodenum or the pancreas. 3. Hepatosplenomegaly. No focal lesions. Liver is diffusely fatty infiltration. 4. Stable right renal cysts. Report Dictated By: Varun Whitlock at 08/03/2018 6:44 PM Report E-Signed By: Varun Whitlock at 08/03/2018 7:03 PM WSN:[id number]
--- NOTE | 2018-08-03 20:08 | Miscellaneous Provider Note ---
Miscellaneous Provider Note Note GI specialist recommended a MRCP to look at the biliary system. The test didn't show any ductal dilatation or obstruction, but had evidence c/w cholecystitis. Will get a HIDA scan tomorrow to better evaluate if the biliary system is draining and if the gallbladder is filling. The patient's abdominal exam was again benign this evening. DESHAWN GUIDRY MD Aug 03, 2018 20:08
[2018-08-04 03:04] VITALS: BP 135/71
[2018-08-04 06:16] LABS: PLATELET COUNT, AUTOMATED 173 K/uL (150-450)
[2018-08-04] MEDS: SUCRALFATE 1 GM TAB PO SCH ×3 (06:30→11:37)
[2018-08-04 07:36] VITALS: BP 135/80
[2018-08-04] MEDS: LACTULOSE 10 GM/15 ML UDCUP PO SCH (09:27)
[2018-08-04] MEDS: DIGOXIN 0.125 MG TAB PO SCH (09:27)
[2018-08-04] MEDS: PANTOPRAZOLE SOD 40 MG TABEC PO SCH (09:27)
[2018-08-04] MEDS: THIAMINE HCL 100 MG TAB PO SCH (09:27)
--- NOTE | 2018-08-04 10:51 | Hospitalist Depart ---
Discharge Summary Reason for Hosp/Final Diag: (1) Cirrhosis, alcoholic Hospital Course & Plan: His liver function has worsened significantly since last checked (07/2017). CT scan shows hepatomegaly and marked steatosis. His liver enzymes have remained elevated, but the total bilirubin (mostly direct) continues to rise. Hepatitis panel is negative. RUQ US shows no evidence of new ductal dilation (common bile duct at 9mm as it was in 2016) or obstruction. INR has been normal during this admission. Ammonia has begun to rise and he was started on low dose Lactulose. MRCP performed with questionable findings of cholecystitis no mass or ductal dilatation noted. Discussed with Dr Puente who believes patient would benefit from ERCP given negative findings thus far and marked rise in bilirubin. Coordinated transfer to [facility] under care of Ruby Pitts and Cindi. (2) Acute renal failure Status: Acute Hospital Course & Plan: He did have an elevated creatinine at admission (3.2). His levels had improved with IV fluids, but are now trending back up. Renal US, Abdiel, UCr, Uprotein are pending. Concerned about ATN vs hepatorenal syndrome though liver disease does not appear advanced enough to cause hepatorenal. (3) Weakness Status: Acute Hospital Course & Plan: Secondary to sepsis and baseline deconditioning. Therapy is recommending a correction subacute rehab facility to help him regain strength. Transitional care nursing is working with the family to find a good location. (4) Atrial fibrillation with RVR Hospital Course & Plan: He was in atrial fibrillation with a rapid rate on arrival. He was also hypotensive. He was started on IV diltiazem in the emergency department, but this was stopped secondary to hypotension. A troponin was slightly elevated above normal, but not into positive range. He received a digoxin load and is now on scheduled dosing. He was on Lovenox, but this was stopped secondary to concerns of bleeding. (5) Melena Hospital Course & Plan: He has developed melena and his Hgb has been drifting down. Lovenox has been discontinued and stool is positive for occult blood. He will need endoscopy investigation as an outpatient unless his Hgb continues to go down and then would need it sooner. (6) Bacterial pneumonia Hospital Course & Plan: His chest x-ray and CT scan indicated a left lower lobe infiltrate. He was on treatment with cefepime and doxycycline. He then went to oral treatment with cefdinir and doxycycline. We stopped antibiotics on 08/02. He will require a repeat chest x-ray to document resolution. (7) Sepsis Status: Resolved Hospital Course & Plan: Resolved. He was noted to be febrile in the field. He also had an elevated lactate level. He has improved with IV fluids and treatment of his infection. (8) Altered mental status Status: Acute Hospital Course & Plan: He was found down at home. The events leading up to this and how long he was down are unknown. CT scan of the head was unremarkable. His mentation has cleared with treatment of his sepsis. He most likely had a component of withdrawal as well. Per family, he is now near or at baseline. (9) Alcoholism Status: Chronic Hospital Course & Plan: He does have a history of withdrawal. He was on CIWA protocol and IV thiamine. Family and patient request resources from [facility] for alcohol abuse. Departure Weight (Pounds): 234 Weight (Ounces): 7.0 Result Diagram: 08/04/1855408/04/18554 Condition: Improved Discharge: Another Hospital PT/OT Follow Up For: PT For Strengthening, OT For ADL's, PT Evaluation and T reat, ST Evaluation and Treat, OT Evaluation and Treat Discharge Instructions Home Meds Active Scripts Simvastatin (SIMVASTATIN) 20 Mg Tablet, 20 MG PO HS, #90 TAB 1 Refill Prov:SLOANE PETERSON MD 03/26/18 Pantoprazole Sodium (PANTOPRAZOLE SODIUM) 40 Mg Tablet.dr, 40 MG PO QDAY, #30 TAB.SR 6 Refills Prov:SLOANE PETERSON MD 01/20/18 Fluticasone Prop 50 Mcg Ns (FLONASE 50 MCG NS) 16 Gm [place].susp, 2 SPRAYS NS QDAY, #1 BOT 3 Refills Prov:SLOANE PETERSON MD 01/20/18 Reported Medications Multivitamin (MULTIVITAMINS) 1 Each Capsule, 1 EACH PO QDAY, CAPSULE 12/27/15 Cyclosporine (RESTASIS) 1 Each Droperette, 1 EACH OP DAILY 09/26/13 Discontinued Reported Medications Witch Ivonne (TUCKS) 1 Each Med..pad, 1 EACH TP PRN PRN for HEMORRHOIDS 05/28/17 Folic Acid (FOLIC ACID) 1 Mg Tablet, 1 MG PO QDAY, TAB 12/12/17 Discontinued Scripts Amoxicillin/Pot Clav 875-125 Mg Tab (AUGMENTIN 875-125 TABLET) 1 Each Tablet, 1 TAB PO Q12H for 10 Days, #20 TAB Prov:NAIN YARBROUGH JR, MD 05/14/18 Neomycin/Polymyxin B Sulf/Hc (Cortisporin [DSC] EAR SOLN) 10 Ml Solution, 5 DROP RIGHT EAR BID for 7 Days, #1 BOT Prov:NAIN YARBROUGH JR, MD 05/07/18 Amoxicillin/Pot Clav 875-125 Mg Tab (AUGMENTIN 875-125 TABLET) 1 Each Tablet, 1 TAB PO Q12H, #20 TAB Prov:SLOANE PETERSON MD 03/20/18 Trazodone Hcl (TRAZODONE HCL) 150 Mg Tablet, 50-150 MG PO QHS, #90 TAB 6 Refills TAKE 50 - 150 MG ABOUT AN HOUR BEFORE YOU PLAN TO GO TO SLEEP. Prov:SLOANE PETERSON MD 07/24/17 Diet: Low Cholesterol & Sat Fat Copies to: SLOANE PETERSON MD ; Venous Thromboembolism Antithrombotics Is Pt On Any Antithrombotics?: No KASSIDY DIAZ DO Aug 04, 2018 10:51
[2018-08-04 11:54] VITALS: BP 131/78
--- NOTE | 2018-08-04 12:27 | NUR ---
OCCUPATIONAL THERAPY Dressing Assistance: Maximum assist LB dressing. Set-up UB dressing. Bathing Assistance: Moderate assist Bathing Equipment: Shower Chair Home Assessment: Not Completed Feeding Assistance: Set-up Feeding Specialized Equipment: None Toilet Use: Maximum Assistance Verbalizes Needs: Yes, occasionally Cooperative: Yes Family Teaching: No Occupational Therapy Comment: Pt requires frequent v/c's for safety awareness and problem solving
== END 2018-08-04 12:20 | disposition short-term general hospital (02) | DRG 871 ==
LOC: ER 17:17 → ICU 18:11 → MED 07-28 10:00
PROVIDERS: ADMIT Family Medicine; ATTEND Family Medicine
PROC: 5A09457 Assistance with Respiratory Ventilation, 24-96 Consecutive Hours, Continuous Positive Airway Pressure (ICD-10-PCS; principal; 2018-07-25)
DX: A41.9 Sepsis, unspecified organism (principal); J15.9 Unspecified bacterial pneumonia; N17.9 Acute kidney failure, unspecified; K92.1 Melena; F33.9 Major depressive disorder, recurrent, unspecified; F10.231 Alcohol dependence with withdrawal delirium; F13.231 Sedative, hypnotic or anxiolytic dependence with withdrawal delirium; K70.30 Alcoholic cirrhosis of liver without ascites; K81.9 Cholecystitis, unspecified; R53.1 Weakness; I48.2 Chronic atrial fibrillation; I95.9 Hypotension, unspecified; N18.2 Chronic kidney disease, stage 2 (mild); M1A.9XX0 Chronic gout, unspecified, without tophus (tophi); K76.0 Fatty (change of) liver, not elsewhere classified; Y90.0 Blood alcohol level of less than 20 mg/100 ml; Z88.8 Allergy status to other drugs, medicaments and biological substances
CPT/HCPCS: 36415; 36600; 70450; 71045; 71250; 72125; 74176; 74181; 76705; 80074; 80162; 80305; 80320; 81001; 82040; 82140; 82247; 82248; 82274; 82310; 82330; 82374; 82435; 82550; 82565; 82728; 82803; 82947; 83540; 83550; 83605; 83690; 83735; 84075; 84132; 84155; 84295; 84443; 84450; 84460; 84484; 84520; 85025; 85610; 85730; 87040; 87088; 87502; 93005; 94660; 97161; 97166; C8929; J0692; J1160; J1650; J2060; J3370; J3411; J3475; J3480; J3490; J7030; J7040; J7050; P9045; Q9957

== ENCOUNTER → 2018-07-25 | Outpatient (CLI) | payer MEDICARE ==
[~2018-07-25] MED LIST changes: +CORED RIGHT EAR
== END ==
LOC: AMB 15:51
PROVIDERS: ATTEND Nurse Practitioner
DX: R41.82 Altered mental status, unspecified (principal); S61.411A Laceration without foreign body of right hand, initial encounter; R53.1 Weakness
CPT/HCPCS: A0425; A0427

== ENCOUNTER → 2018-08-04 | Outpatient (CLI) | payer MEDICARE ==
[~2018-08-04] MED LIST changes: +CAL667 PO; +CHL12L MM; +DRON2.5C10 PO; +HYDR28.33 TD; +LAC10L PO; +LACT10SO82 PO; +MIDO10TA9 PO; +POTA10CA40 PO; +VIT-35 PO; +VITA-175 PO; +[UNRECOGNIZED DRUG - CODE] TP
== END ==
LOC: AMB 12:03
PROVIDERS: ATTEND Nurse Practitioner
DX: R41.82 Altered mental status, unspecified (principal); R53.1 Weakness; R17 Unspecified jaundice
CPT/HCPCS: A0425; A0428

== ENCOUNTER 2018-09-24 08:00 | Outpatient (RCR) | payer MEDICARE ==
[~2018-09-24 08:00] MED LIST changes: -CAL667 PO; -CHL12L MM; -DRON2.5C10 PO; -HYDR28.33 TD; -LAC10L PO; -LACT10SO82 PO; -MIDO10TA9 PO; -POTA10CA40 PO; -TRAZ50TA34 PO; +TRAZ50TA52 PO; -VIT-35 PO; -VITA-175 PO; -[UNRECOGNIZED DRUG - CODE] TP; +[UNRECOGNIZED DRUG - OTHER] IVP PRN
[2018-09-24] MEDS ORDERED: PROMETHAZINE HCL 25 MG TAB PO PRN (14:00)
[2018-09-24] MEDS ORDERED: DIALYSIS ACETAMINOPHEN 325 MG PO PRN (14:00)
[2018-09-24] MEDS ORDERED: LOPERAMIDE HCL 2 MG CAP PO PRN (14:00)
[2018-09-24] MEDS ORDERED: diphenhydr DIALYSIS 50 MG/ML IVP PRN (14:00)
[2018-09-24 14:27] LABS: PLATELET COUNT, AUTOMATED 223 K/uL (150-450)
[2018-09-26] MEDS: DARBEPOETIN ESRD 25 MCG/ML IVP PRN (14:24)
[2018-09-26] MEDS: SODIUM FERRIC GLUC 62.5 MG/5ML IVP PRN (14:25)
[2018-09-29] MEDS: SODIUM FERRIC GLUC 62.5 MG/5ML IVP PRN (12:00)
[2018-10-01] MEDS: SODIUM FERRIC GLUC 62.5 MG/5ML IVP PRN (12:21)
[2018-10-02] MEDS ORDERED: DRON2.5C10 PO (11:19)
[2018-10-02] MEDS ORDERED: HYDR28.33 TD (11:23)
[2018-10-02] MEDS ORDERED: [UNRECOGNIZED DRUG - CODE] TP (14:49)
[2018-10-02] MEDS ORDERED: MIDO10TA9 PO (14:49)
[2018-10-02] MEDS ORDERED: POTA10CA40 PO (14:49)
[2018-10-02] MEDS ORDERED: LACT10SO82 PO (14:49)
[2018-10-02] MEDS ORDERED: FOLI-68 PO (14:49)
[2018-10-02] MEDS ORDERED: PANT40TA65 PO (14:49)
[2018-10-02] MEDS ORDERED: VITA-175 PO (14:49)
[2018-10-02] MEDS ORDERED: CAL667 PO (15:07)
[2018-10-03] MEDS: DARBEPOETIN ESRD 25 MCG/ML IVP PRN (12:01)
[2018-10-03] MEDS: SODIUM FERRIC GLUC 62.5 MG/5ML IVP PRN (12:01)
[2018-10-08] MEDS: ALTEPLASE RECOMB 2 MG VIAL IVP PRN (11:10)
[2018-10-08] MEDS: WATER STERILE 10 ML VIAL IVP PRN (11:10)
[2018-10-08] MEDS: SODIUM FERRIC GLUC 62.5 MG/5ML IVP PRN (12:13)
[2018-10-10] MEDS: DARBEPOETIN ESRD 25 MCG/ML IVP PRN (11:49)
[2018-10-10] MEDS: WATER STERILE 10 ML VIAL IVP PRN (15:29)
[2018-10-10] MEDS: ALTEPLASE RECOMB 2 MG VIAL IVP PRN (15:30)
[2018-10-10] MEDS ORDERED: MIDO10TA9 PO (16:49)
[2018-10-10] MEDS ORDERED: VIT-35 PO (16:49)
[2018-10-10] MEDS ORDERED: LAC10L PO (16:49)
[2018-10-13] MEDS: WATER STERILE 10 ML VIAL IVP PRN (15:15)
[2018-10-13] MEDS: ALTEPLASE RECOMB 2 MG VIAL IVP PRN (15:15)
[2018-10-15] MEDS: HEPARIN (PORCINE) 1000 UNIT/ML (DIALYSIS) IVP PRN (10:56)
[2018-10-15] MEDS: SODIUM FERRIC GLUC 62.5 MG/5ML IVP PRN (11:41)
[2018-10-16] MEDS ORDERED: CHL12L MM (11:01)
[2018-10-16] MEDS ORDERED: LAC10L PO (11:01)
[2018-10-16] MEDS ORDERED: MIDO10TA9 PO (11:03)
[2018-10-17] MEDS: HEPARIN (PORCINE) 1000 UNIT/ML (DIALYSIS) IVP PRN (10:55)
[2018-10-17] MEDS: DARBEPOETIN ESRD 25 MCG/ML IVP PRN (14:41)
[2018-10-20] MEDS: HEPARIN (PORCINE) 1000 UNIT/ML (DIALYSIS) IVP PRN (15:11)
[2018-10-22] MEDS: HEPARIN (PORCINE) 1000 UNIT/ML (DIALYSIS) IVP PRN (10:57)
[2018-10-22] MEDS: SODIUM FERRIC GLUC 62.5 MG/5ML IVP PRN (11:30)
[2018-10-24] MEDS: HEPARIN (PORCINE) 1000 UNIT/ML (DIALYSIS) IVP PRN (10:55)
[2018-10-24] MEDS ORDERED: HEPATITIS B(DIAL) VAC 20MCG/ML 1 ML VIAL IM ONLY ONE ×2 (12:00)
[2018-10-24] MEDS: DARBEPOETIN ESRD 25 MCG/ML IVP PRN (12:12)
[2018-10-27] MEDS: HEPARIN (PORCINE) 1000 UNIT/ML (DIALYSIS) IVP PRN (11:00)
[2018-10-27] MEDS: WATER STERILE 10 ML VIAL IVP PRN (15:07)
[2018-10-27] MEDS: ALTEPLASE RECOMB 2 MG VIAL IVP PRN (15:07)
[2018-10-29] MEDS: HEPARIN (PORCINE) 1000 UNIT/ML (DIALYSIS) IVP PRN (10:55)
[2018-10-29] MEDS: SODIUM FERRIC GLUC 62.5 MG/5ML IVP PRN (11:33)
[2018-10-29 12:23] LABS: PLATELET COUNT, AUTOMATED 202 K/uL (150-450)
[2018-10-31] MEDS: HEPARIN (PORCINE) 1000 UNIT/ML (DIALYSIS) IVP PRN (11:17)
[2018-10-31] MEDS: DARBEPOETIN ESRD 25 MCG/ML IVP PRN (11:59)
[2018-10-31] MEDS ORDERED: PANT40TA65 PO (13:55)
[2018-11-03] MEDS: HEPARIN (PORCINE) 1000 UNIT/ML (DIALYSIS) IVP PRN (11:08)
[2018-11-05] MEDS: HEPARIN (PORCINE) 1000 UNIT/ML (DIALYSIS) IVP PRN (10:54)
[2018-11-05] MEDS: SODIUM FERRIC GLUC 62.5 MG/5ML IVP PRN (11:27)
[2018-11-05] MEDS ORDERED: DRON2.5C10 PO (17:11)
[2018-11-07] MEDS: HEPARIN (PORCINE) 1000 UNIT/ML (DIALYSIS) IVP PRN (11:10)
[2018-11-07] MEDS: DARBEPOETIN ESRD 25 MCG/ML IVP PRN (12:54)
[2018-11-10] MEDS: HEPARIN (PORCINE) 1000 UNIT/ML (DIALYSIS) IVP PRN (10:55)
[2018-11-12] MEDS: HEPARIN (PORCINE) 1000 UNIT/ML (DIALYSIS) IVP PRN (10:53)
[2018-11-12] MEDS: SODIUM FERRIC GLUC 62.5 MG/5ML IVP PRN (11:32)
[2018-11-13] MEDS ORDERED: SULF-197 PO (15:01)
[2018-11-14] MEDS: HEPARIN (PORCINE) 1000 UNIT/ML (DIALYSIS) IVP PRN (11:07)
[2018-11-14] MEDS: DARBEPOETIN ESRD 25 MCG/ML IVP PRN (11:42)
[2018-11-17] MEDS: HEPARIN (PORCINE) 1000 UNIT/ML (DIALYSIS) IVP PRN (10:59)
[2018-11-19] MEDS: HEPARIN (PORCINE) 1000 UNIT/ML (DIALYSIS) IVP PRN (10:45)
[2018-11-19] MEDS: SODIUM FERRIC GLUC 62.5 MG/5ML IVP PRN (11:23)
[2018-11-19 11:49] LABS: PLATELET COUNT, AUTOMATED 241 K/uL (150-450)
[2018-11-21] MEDS: HEPARIN (PORCINE) 1000 UNIT/ML (DIALYSIS) IVP PRN (10:46)
[2018-11-21] MEDS: DARBEPOETIN ESRD 40MCG/ML IVP PRN (11:25)
[2018-11-21] MEDS ORDERED: HEPATITIS B(DIAL) VAC 20MCG/ML 1 ML VIAL IM ONLY ONE (12:00)
[2018-11-24] MEDS: HEPARIN (PORCINE) 1000 UNIT/ML (DIALYSIS) IVP PRN (11:05)
[2018-11-26] MEDS: HEPARIN (PORCINE) 1000 UNIT/ML (DIALYSIS) IVP PRN (10:53)
[2018-11-26] MEDS: SODIUM FERRIC GLUC 62.5 MG/5ML IVP PRN (11:10)
[2018-11-28] MEDS ORDERED: HEPARIN (PORCINE) 1000 UNIT/ML (DIALYSIS) IVP PRN
[2018-11-28] MEDS: HEPARIN (PORCINE) 1000 UNIT/ML (DIALYSIS) IVP PRN ×2 (10:55)
[2018-11-28] MEDS: DARBEPOETIN ESRD 40MCG/ML IVP PRN (11:02)
[2018-11-28] MEDS ORDERED: CHLO473M14 RINSE (16:42)
[2018-12-01] MEDS: HEPARIN (PORCINE) 1000 UNIT/ML (DIALYSIS) IVP PRN ×2 (10:51)
[2018-12-03] MEDS: HEPARIN (PORCINE) 1000 UNIT/ML (DIALYSIS) IVP PRN ×2 (11:02→11:03)
[2018-12-03] MEDS: SODIUM FERRIC GLUC 62.5 MG/5ML IVP PRN (11:34)
[2018-12-05] MEDS: HEPARIN (PORCINE) 1000 UNIT/ML (DIALYSIS) IVP PRN ×2 (11:08→11:09)
[2018-12-05] MEDS: DARBEPOETIN ESRD 100 MCG/0.5ML SYR IVP PRN (12:12)
[2018-12-08] MEDS: HEPARIN (PORCINE) 1000 UNIT/ML (DIALYSIS) IVP PRN ×2 (10:58)
[2018-12-10] MEDS: HEPARIN (PORCINE) 1000 UNIT/ML (DIALYSIS) IVP PRN ×2 (11:01)
[2018-12-10] MEDS: SODIUM FERRIC GLUC 62.5 MG/5ML IVP PRN (11:15)
[2018-12-12] MEDS: HEPARIN (PORCINE) 1000 UNIT/ML (DIALYSIS) IVP PRN ×2 (10:59)
[2018-12-12] MEDS: DARBEPOETIN ESRD 100 MCG/0.5ML SYR IVP PRN (11:40)
[2018-12-15] MEDS: HEPARIN (PORCINE) 1000 UNIT/ML (DIALYSIS) IVP PRN ×2 (10:52)
[2018-12-17] MEDS: HEPARIN (PORCINE) 1000 UNIT/ML (DIALYSIS) IVP PRN ×2 (10:45)
[2018-12-17] MEDS: SODIUM FERRIC GLUC 62.5 MG/5ML IVP PRN (10:50)
[2018-12-19] MEDS: HEPARIN (PORCINE) 1000 UNIT/ML (DIALYSIS) IVP PRN ×2 (10:57→10:58)
[2018-12-19] MEDS ORDERED: HEPATITIS B(DIAL) VAC 20MCG/ML 1 ML VIAL IM ONLY ONE (12:00)
[2018-12-19] MEDS ORDERED: DARBEPOETIN ESRD 25 MCG/ML IVP PRN (13:40)
[2018-12-22] MEDS: HEPARIN (PORCINE) 1000 UNIT/ML (DIALYSIS) IVP PRN ×2 (10:51→10:52)
[2018-12-24] MEDS: HEPARIN (PORCINE) 1000 UNIT/ML (DIALYSIS) IVP PRN ×2 (10:55)
[2018-12-24] MEDS: SODIUM FERRIC GLUC 62.5 MG/5ML IVP PRN (11:30)
[2018-12-26] MEDS: HEPARIN (PORCINE) 1000 UNIT/ML (DIALYSIS) IVP PRN ×2 (10:46)
[2018-12-26] MEDS: DARBEPOETIN ESRD 25 MCG/ML IVP PRN (10:53)
[2018-12-29] MEDS: HEPARIN (PORCINE) 1000 UNIT/ML (DIALYSIS) IVP PRN ×2 (10:57→10:58)
[2018-12-29] MEDS ORDERED: VANCOMYCIN(*) 1 GM VIAL 1 GM, VANCOMYCIN (*) 0.5 GM VIAL 0.25 GM in NS(*) 0.9% 250 ML B... IVPB ONE (13:30)
[2018-12-29] MEDS ORDERED: [UNRECOGNIZED DRUG - OTHER] IVPB ONE (13:45)
[2018-12-29] MEDS ORDERED: VANCOMYCIN IVPB ONE (13:45)
[2018-12-31] MEDS: HEPARIN (PORCINE) 1000 UNIT/ML (DIALYSIS) IVP PRN ×2 (10:49)
[2018-12-31] MEDS ORDERED: VANCOMYCIN IVPB PRN (13:30)
[2018-12-31] MEDS ORDERED: NS 0.9% IVPB PRN (13:30)
[2018-12-31] MEDS: SODIUM FERRIC GLUC 62.5 MG/5ML IVP PRN (13:33)
[2019-01-02] MEDS: HEPARIN (PORCINE) 1000 UNIT/ML (DIALYSIS) IVP PRN ×2 (10:53)
[2019-01-02] MEDS: DARBEPOETIN ESRD 25 MCG/ML IVP PRN (11:23)
[2019-01-05] MEDS: HEPARIN (PORCINE) 1000 UNIT/ML (DIALYSIS) IVP PRN ×2 (11:07)
[2019-01-07] MEDS: HEPARIN (PORCINE) 1000 UNIT/ML (DIALYSIS) IVP PRN ×2 (11:11)
[2019-01-07 11:48] LABS: PLATELET COUNT, AUTOMATED 259 K/uL (150-450)
[2019-01-07] MEDS ORDERED: LOPERAMIDE HCL 2 MG CAP PO PRN (12:00)
[2019-01-07] MEDS ORDERED: DIALYSIS ACETAMINOPHEN 325 MG PO PRN (12:00)
[2019-01-07] MEDS ORDERED: [UNRECOGNIZED DRUG - OTHER] IVP PRN (12:00)
[2019-01-07] MEDS ORDERED: diphenhydr DIALYSIS 50 MG/ML IVP PRN (12:00)
[2019-01-07] MEDS ORDERED: WATER STERILE 10 ML VIAL IVP PRN (12:00)
[2019-01-07] MEDS: SODIUM FERRIC GLUC 62.5 MG/5ML IVP PRN (12:05)
[2019-01-07] MEDS ORDERED: PROMETHAZINE HCL 25 MG TAB PO PRN (12:05)
[2019-01-09] MEDS: HEPARIN (PORCINE) 1000 UNIT/ML (DIALYSIS) IVP PRN ×2 (10:57)
[2019-01-09] MEDS: DARBEPOETIN ESRD 25 MCG/ML IVP PRN (11:38)
[2019-01-09] MEDS: ALTEPLASE RECOMB 2 MG VIAL IVP PRN (15:21)
[2019-01-12] MEDS: HEPARIN (PORCINE) 1000 UNIT/ML (DIALYSIS) IVP PRN ×2 (11:16)
[2019-01-13] MEDS ORDERED: MIDO10TA9 PO (13:48)
[2019-01-13] MEDS ORDERED: HYDR25SU10 ASDIRECTED (13:52)
[2019-01-14] MEDS: HEPARIN (PORCINE) 1000 UNIT/ML (DIALYSIS) IVP PRN ×2 (11:15)
[2019-01-14] MEDS: SODIUM FERRIC GLUC 62.5 MG/5ML IVP PRN (11:29)
[2019-01-16] MEDS: HEPARIN (PORCINE) 1000 UNIT/ML (DIALYSIS) IVP PRN ×2 (11:01)
[2019-01-16] MEDS: DARBEPOETIN ESRD 25 MCG/ML IVP PRN (11:58)
[2019-01-19] MEDS: HEPARIN (PORCINE) 1000 UNIT/ML (DIALYSIS) IVP PRN ×2 (11:10)
[2019-01-21] MEDS: HEPARIN (PORCINE) 1000 UNIT/ML (DIALYSIS) IVP PRN ×2 (11:09→11:10)
[2019-01-21] MEDS: SODIUM FERRIC GLUC 62.5 MG/5ML IVP PRN (12:29)
[2019-01-23] MEDS: HEPARIN (PORCINE) 1000 UNIT/ML (DIALYSIS) IVP PRN ×2 (11:04→11:05)
[2019-01-23] MEDS: DARBEPOETIN ESRD 25 MCG/ML IVP PRN (12:18)
[2019-01-26] MEDS: HEPARIN (PORCINE) 1000 UNIT/ML (DIALYSIS) IVP PRN ×2 (10:49)
[2019-01-28] MEDS: HEPARIN (PORCINE) 1000 UNIT/ML (DIALYSIS) IVP PRN ×2 (10:45→10:46)
[2019-01-28] MEDS: SODIUM FERRIC GLUC 62.5 MG/5ML IVP PRN (11:04)
[2019-01-28 11:18] LABS: PLATELET COUNT, AUTOMATED 317 K/uL (150-450)
[2019-01-30] MEDS: HEPARIN (PORCINE) 1000 UNIT/ML (DIALYSIS) IVP PRN ×2 (11:01→11:02)
[2019-01-30] MEDS: DARBEPOETIN ESRD 25 MCG/ML IVP PRN (11:19)
[2019-02-02] MEDS: HEPARIN (PORCINE) 1000 UNIT/ML (DIALYSIS) IVP PRN ×2 (10:57)
[2019-02-04] MEDS: HEPARIN (PORCINE) 1000 UNIT/ML (DIALYSIS) IVP PRN ×2 (10:51)
[2019-02-04] MEDS: SODIUM FERRIC GLUC 62.5 MG/5ML IVP PRN (11:43)
[2019-02-04] MEDS: ALTEPLASE RECOMB 2 MG VIAL IVP PRN (15:12)
[2019-02-06] MEDS: HEPARIN (PORCINE) 1000 UNIT/ML (DIALYSIS) IVP PRN ×2 (10:52→10:53)
[2019-02-06] MEDS: DARBEPOETIN ESRD 25 MCG/ML IVP PRN (11:13)
== END 2019-02-14 ==
LOC: DIAL 08:00 → EDSTATUS 08:30
PROVIDERS: ATTEND Internal Medicine Nephrology
DX: N18.6 End stage renal disease (principal); K72.00 Acute and subacute hepatic failure without coma; I48.0 Paroxysmal atrial fibrillation; F10.10 Alcohol abuse, uncomplicated; E43 Unspecified severe protein-calorie malnutrition; D63.1 Anemia in chronic kidney disease; Z87.891 Personal history of nicotine dependence; Z99.2 Dependence on renal dialysis; Z66 Do not resuscitate; J44.9 Chronic obstructive pulmonary disease, unspecified; K21.9 Gastro-esophageal reflux disease without esophagitis; F33.40 Major depressive disorder, recurrent, in remission, unspecified; D53.9 Nutritional anemia, unspecified; B18.2 Chronic viral hepatitis C; Z23 Encounter for immunization
CPT/HCPCS: 82108; 82306; 82310; 82374; 82435; 82465; 82565; 82570; 82607; 82610; 82728; 82746; 82947; 83540; 83550; 83970; 84100; 84132; 84295; 84478; 84520; 84540; 85018; 85025; 86706; 86803; 87070; 87205; 87340; 90747; 90999; A4216; A4657; G0010; J0881; J0882; J2916; J2997; J3370

== ENCOUNTER → 2018-10-02 | Outpatient (CLI) | payer MEDICARE ==
[~2018-10-02] MED LIST changes: +CAL667 FT; +DRON2.5C10 PO; +HYDR28.33 TD; +LACT10SO82 PO; +MIDO10TA9 PO; +POTA10CA40 PO; +TRAZ50TA34 PO; -TRAZ50TA52 PO; +VITA-175 PO; +[UNRECOGNIZED DRUG - CODE] TP; -[UNRECOGNIZED DRUG - OTHER] IVP PRN
[2018-10-02 11:54] LABS: PLATELET COUNT, AUTOMATED 206 K/uL (150-450)
[2018-10-02 12:02] LABS: INR 1.22
== END ==
LOC: LAB 11:31
PROVIDERS: ATTEND Internal Medicine
DX: N17.9 Acute kidney failure, unspecified (principal); R63.4 Abnormal weight loss; R60.9 Edema, unspecified; K70.30 Alcoholic cirrhosis of liver without ascites
CPT/HCPCS: 36415; 82040; 82140; 82247; 82310; 82374; 82435; 82565; 82607; 82746; 82947; 83690; 84075; 84132; 84155; 84295; 84443; 84450; 84460; 84520; 85025; 85610

== ENCOUNTER → 2018-10-17 | Outpatient (CLI) | payer MEDICARE ==
[~2018-10-17] MED LIST changes: -CAL667 FT; +CAL667 PO; +CHL12L MM; +LAC10L PO; +VIT-35 PO
[2018-10-17 11:25] LABS: PLATELET COUNT, AUTOMATED 196 K/uL (150-450)
== END ==
LOC: LAB 11:15
PROVIDERS: ATTEND Internal Medicine
DX: K70.10 Alcoholic hepatitis without ascites (principal); R63.4 Abnormal weight loss; K70.30 Alcoholic cirrhosis of liver without ascites; N18.6 End stage renal disease
CPT/HCPCS: 82040; 82247; 82310; 82374; 82435; 82565; 82607; 82728; 82746; 82947; 83540; 83550; 84075; 84132; 84155; 84295; 84450; 84460; 84520; 85025; 85651; 86038; 86140

== ENCOUNTER → 2018-10-29 | Outpatient (REF) | payer MEDICARE | LOC: ZZSENDIN 12:08 | PROVIDERS: ATTEND Internal Medicine | DX: K70.10 Alcoholic hepatitis without ascites (principal); I48.91 Unspecified atrial fibrillation; R74.8 Abnormal levels of other serum enzymes | CPT/HCPCS: 82040; 82247; 82310; 82374; 82435; 82565; 82947; 84075; 84132; 84155; 84295; 84450; 84460; 84520 ==

== ENCOUNTER → 2018-10-30 | Outpatient (CLI) | payer MEDICARE ==
[~2018-10-30] MED LIST changes: +BARIUM SULFATE 176 GM BTL PO ONE; +BARIUM SULFATE 340 GM POWD ONE
--- NOTE | 2018-10-30 17:06 | RADIOLOGY IMAGING REPORT ---
FACILITY: [facility] PATIENT NAME: Thai Cruz : 1940 MR: [id number] V: [id number] EXAM DATE: ORDERING PHYSICIAN: SLOANE PETERSON TECHNOLOGIST: Location: [facility] Patient: Thai Cruz : 1940 Visit/Account:[id number] Date of Sevice: 10/30/2018 Exam type: ESOPHAGRAM History: Dysphasia Comparison: None. Findings: The study was limited due to patient's limited mobility and inability to stand. Double contrast esop hagram was performed with thick and thin barium and air contrast. There appeared to be high-grade na rrowing in the distal esophagus although barium did pass freely into the stomach. Moderate to severe gastroesophageal reflux was observed in addition to numerous tertiary waves. No definite mucosal er osions are identified. The dose area product was 498.9 micro-Hernández per meter squared IMPRESSION: 1. Limited study due to patient's limited mobility and inability to stand. There did appear to be a high-grade narrowing of the distal esophagus although the barium did pass freely into the stomach. Moderate to severe gastroesophageal reflux was observed in addition to numerous tertiary waves. Report Dictated By: Brigitte Fung MD at 10/30/2018 5:00 PM Report E-Signed By: Brigitte Fung MD at 10/30/2018 5:03 PM WSN:[email or web address]
--- NOTE | 2018-10-30 17:09 | RADIOLOGY IMAGING REPORT ---
FACILITY: [facility] PATIENT NAME: Thai Cruz : 1940 MR: [id number] V: [id number] EXAM DATE: ORDERING PHYSICIAN: SLOANE PETERSON TECHNOLOGIST: Location: [facility] Patient: Thai Cruz : 1940 Visit/Account:[id number] Date of Sevice: 10/30/2018 Exam type: ESOPH VIDEO SWALLOWING History: Dysphasia Comparison: Esophagram performed today. Findings: The video esophagram was performed by the speech pathologist. Fluoroscopic assistance was provided. The patient received various barium impregnated liquids and solids and a half of the barium tablet. There is mild oral dysphagia and possible mild esophageal dysphasia. The half of the barium tablet did lodge in the lower esophagus although eventually did pass into the stomach. The dose area produc t was 237.18 micro-Hernández per meter squared IMPRESSION: 1. As above Report Dictated By: Brigitte Fung MD at 10/30/2018 5:03 PM Report E-Signed By: Brigitte Fung MD at 10/30/2018 5:04 PM WSN:[email or web address]
== END ==
LOC: RAD 00:02
PROVIDERS: ATTEND Internal Medicine
DX: R13.10 Dysphagia, unspecified (principal)
CPT/HCPCS: 74220; 74230

== ENCOUNTER → 2018-11-14 | Outpatient (CLI) | payer MEDICARE ==
[~2018-11-14] MED LIST changes: -BARIUM SULFATE 176 GM BTL PO ONE; -BARIUM SULFATE 340 GM POWD ONE; +SULF-197 PO
--- NOTE | 2018-11-14 17:07 | RADIOLOGY IMAGING REPORT ---
FACILITY: [facility] PATIENT NAME: Thai Cruz : 1940 MR: [id number] V: [id number] EXAM DATE: ORDERING PHYSICIAN: JUNIOR HANDLEY TECHNOLOGIST: Location: [facility] Patient: Thai Cruz : 1940 Visit/Account:[id number] Date of Sevice: 11/14/2018 Left calcaneus, 2 views. HISTORY: Open wound of left heel. COMPARISON: None. Moderate size spurs are present along the plantar aspect of the calcaneus. No focal bony destruction. Spurring is present along the superior aspect of the tarsal-metatarsal joints. Multiple small densit ies consistent with the patient's sock project on the ankle and foot. IMPRESSION: Moderate plantar calcaneal spurs. Otherwise negative for evidence of osteomyelitis. Report Dictated By: Andrea Orantes MD at 11/14/2018 4:59 PM Report E-Signed By: Andrea Orantes MD at 11/14/2018 5:01 PM WSN:[id number]
== END ==
LOC: RAD 16:15
PROVIDERS: ATTEND Surgery
DX: M77.32 Calcaneal spur, left foot (principal)

== ENCOUNTER → 2018-11-19 | Outpatient (REF) | payer MEDICARE ==
[~2018-11-19] MED LIST changes: -TRAZ50TA34 PO; +TRAZ50TA52 PO
[2018-11-19 12:00] LABS: INR 1.09
== END ==
LOC: ZZSENDIN 11:32
PROVIDERS: ATTEND Nurse Practitioner Family
DX: K70.10 Alcoholic hepatitis without ascites (principal); K70.30 Alcoholic cirrhosis of liver without ascites; R13.12 Dysphagia, oropharyngeal phase; I48.2 Chronic atrial fibrillation; N18.6 End stage renal disease
CPT/HCPCS: 82105; 82435; 84155; 84450; 85610